=== PATIENT | female | born 1980 | race Caucasian/White ===

== ENCOUNTER 2018-02-27 12:36 | Inpatient (IN) | payer OTHER ==
[2018-02-27] MEDS: Lactated Ringer's 1,000 ML IV SCH (12:45)
[2018-02-27] MEDS ORDERED: Lactated Ringer's 1,000 ML IV ONE ×2 (13:08)
[2018-02-27] MEDS: cefOXitin IV 2 gm in Dextrose 2 GM/50 ML BAG IVPB SCH ×2 (13:13→21:37)
[2018-02-27 13:20] LABS: BASO % 0.5 % (0.0-2.0); EOS # 0.1 K/uL (0.0-0.7); EOS % 0.9 % (0.0-4.0); HEMOGLOBIN 13.1 g/dL (11.0-16.0); LYMPH # 2.6 K/uL (1.0-4.3); LYMPH % 28.7 % (20.0-40.0); MEAN CELL VOLUME 94.2 fL (81.0-99.0); MEAN CORPUSCULAR HEMOGLOBIN 31.2 pg (27.0-31.0); MEAN CORPUSCULAR HGB CONC 33.1 g/dL (33.0-37.0); MONO # 0.7 K/uL (0.0-0.8); MONO % 7.9 % (0.0-10.0); NEUT # 5.6 K/uL (1.8-7.0); NRBC % 0.1 % (0.0-2.0); RBC 4.2 Mil/uL (3.80-5.20); RED CELL DISTRIBUTION WIDTH 20.9 % (11.5-14.5)
[2018-02-27 13:31] LABS: SQUAMOUS EPITHIAL 40 /hpf (0-5); URINE BACTERIA MOD (<OCC); URINE BILIRUBIN NEGATIVE (NEGATIVE); URINE BLOOD 3+ (NEGATIVE); URINE CLARITY Hazy (Clear); URINE COLOR Yellow (YELLOW); URINE GLUCOSE (UA) NORMAL (Normal); URINE LEUKOCYTE ESTERASE NEG Leu/uL (Negative); URINE PROTEIN NEGATIVE (NEGATIVE); URINE UROBILINOGEN NORMAL mg/dL (0.2-1.0)
--- NOTE | 2018-02-27 13:41 | OBHP ---
Datetime: 02/27/2018 13:19 IP Adm Impression: Term, intrauterine ; Active labor; Intact Membranes IP Chief Complaint Other: A1 GDM, previous C/S IP Admit Plan: Admit to unit; Initiate Section protocol Admit Comment, IP Provider: This is a private patient of Dr. Wilver Szymanski 37 y.o. , LMP 06/04/17, ENA 03/09/18, EGA 38w 3d, previous C/S, c/o onset of Ctx 1100 hours , initial pain scale 3/10; by 1130 hours, pain scale 9/10 and occurring every 3 minutes. (+) AFM; (+ ) vaginal spotting 1100 hours. Denies LOF. care: Dr. Szymanski; AMA, A1GDM; last F.S. fasting 02/26/18, none since. P Ob: 2008, C/S, female, 7lb 4oz, arrest of descent; [place]; no comlicaitons P PRODUCTION LEAD: 13 x monthly x 3-4 PSH: C/S PMH: 2013,anxiety, depression; was on meds until beginning of index NKDA Meds: PNV; last took 1 week ago Soc Hx; denies tobacco, illicit drug or EtOH use. x 9 years. Homemaker Mother alive - no med issues. Father alive - DM P.E.: as above. WD in pain with Ctx. Awake, alert, oriented to time, person and place. Cooperative . Husbnad present Assessment: 37 y.o. P1, 38w 3d, previous C/S in active labor. Category 1 tracing. GBS unknown. Pat ient counseled re: TOLAC/ by Dr. Szymanski - patient declines. Patient last ate 2320 hours, 02/26/18 . F.S. 82 mg/dL at 1258 hours. Clincally stable. Plan: 1) Admit 2) NPO 3) Admission labs 4) [place] 5) Abdominal prep and shave 6) Continous EFM 7) Notify anesthesia 8) Notify peds 9) Mefoxin, head tennis professional to O.R. 10) patient head tennis professional to O.R. - as per, D/W, Dr. Szymanski Pelvic Type - PN: Adequate Extremities - PN: Normal Abdomen - PN: Normal Back - PN: Normal Breast - PN: Normal Lungs - PN: Normal Heart - PN: Normal Thyroid - PN: Not Done Neurologic - PN: Normal HEENT - PN: Normal General - PN: Normal Presentation-Admit: Vertex FHR - Baseline A Provider: 135 Membranes, Provider: Intact Contraction Comments Provider: 3-4 Comments, ACOG Physical Exam: Abdomen: Gravid. Firm with contractions. Extremties: red, warm, tender inner thigh from groin to knee All other systems reviewed and are negative Gestation - Est Wks by US: 38w 3d IP Hx Assessment: The History has been Reviewed and is Current EGA AdmitDate IP: 38.3 Vital Signs Provider: Reviewed; Within Normal Limits IP Indication for Induction: Not Applicable IP Chief Complaint: Uterine contractions NICHD Variability Prov Fetus A: Moderate 6-25bpm NICHD Accel Fetus A IP Provider: [id number] FHR Category Provider Fetus A: Category I NICHD Decel Fetus A IP Provider: None Dilatation, Provider: 6-7 Effacement, Provider: 70 Station, Provider: -2 Genitourinary Exam: Normal DTRs - PN: Not Done
[2018-02-27] MEDS ORDERED: Morphine 1 mg/ml preservative-free Inj(Duramorph) ONE (13:42)
[2018-02-27] MEDS ORDERED: Sodium Citrate/Citric Acid 15 ml Sol PO ONE (13:45)
[2018-02-27 13:50] LABS: BARBITURATES, UR NEGATIVE (NEGATIVE); BENZODIAZEPINES, UR NEGATIVE (NEGATIVE); OPIATES, UR NEGATIVE (NEGATIVE); PHENCYCLIDINE, UR NEGATIVE (NEGATIVE)
[2018-02-27] MEDS ORDERED: Oxytocin 10 Units/ml Inj IV STA (14:23)
[2018-02-27] MEDS ORDERED: Naloxone 0.4 mg/ml Inj (Adult) IVP PRN (15:02)
[2018-02-27] MEDS: Simethicone 80 mg Chewtab PO SCH ×2 (18:00→21:43)
--- NOTE | 2018-02-27 19:07 | OBHP ---
Datetime: 02/27/2018 13:19 Admit Comment, IP Provider: This is a private patient of Dr. Wilver Szymanski 37 y.o. , LMP 06/04/17, ENA 03/09/18, EGA 38w 3d, previous C/S, c/o onset of Ctx 1100 hours , initial pain scale 3/10; by 1130 hours, pain scale 9/10 and occurring every 3 minutes. (+) AFM; (+ ) vaginal spotting 1100 hours. Denies LOF. care: Dr. Szymanski; AMA, A1GDM; last F.S. fasting 02/26/18, none since. 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 x 9 years. Homemaker Mother alive - no med issues. Father alive - DM P.E.: as above. WD in pain with Ctx. Awake, alert, oriented to time, person and place. Cooperative . Husbnad present Assessment: 37 y.o. P1, 38w 3d, previous C/S in active labor. Category 1 tracing. GBS unknown. Pat ient counseled re: TOLAC/ by Dr. Szymanski - patient declines. Patient last ate 2320 hours, 02/26/18 . F.S. 82 mg/dL at 1258 hours. Probable right thigh cellulitis. Clinically stable. Plan: 1) Admit 2) NPO 3) Admission labs 4) De Anda 5) Abdominal prep and shave 6) Continous EFM 7) Notify anesthesia 8) Notify peds 9) Mefoxin, automation control integrator to O.R. 10) patient automation control integrator to O.R. - as per, D/W, Dr. Szymanski Addendum: Right thigh findings D/W Dr. Ortega: switch to zosyn. EGA AdmitDate IP: 38.3
[2018-02-27] MEDS ORDERED: Piperacillin/Tazobact 3.375 GM in Sodium Chloride 100 ML IVPB SCH (21:30)
[2018-02-28] MEDS: Lactated Ringer's 1,000 ML IV SCH ×3 (01:31→13:50)
[2018-02-28] MEDS: Oxycodone/Acetaminophen 5/325 mg Tab PO PRN ×4 (03:38→21:58)
[2018-02-28] MEDS: Simethicone 80 mg Chewtab PO SCH ×5 (03:39→21:55)
[2018-02-28] MEDS: Piperacillin/Tazobact 3.375 GM in Sodium Chloride 100 ML IVPB SCH ×3 (05:01→21:56)
[2018-02-28] MEDS: cefOXitin IV 2 gm in Dextrose 2 GM/50 ML BAG IVPB SCH (06:00)
[2018-02-28 08:29] LABS: HEMOGLOBIN 11.2 g/dL (11.0-16.0); MEAN CELL VOLUME 94.6 fL (81.0-99.0); MEAN CORPUSCULAR HEMOGLOBIN 31.3 pg (27.0-31.0); MEAN CORPUSCULAR HGB CONC 33.1 g/dL (33.0-37.0); MEAN PLATELET VOLUME 9.5 fL (7.2-11.7); RBC 3.6 Mil/uL (3.80-5.20); RED CELL DISTRIBUTION WIDTH 20.8 % (11.5-14.5); WHITE BLOOD COUNT 12.2 K/uL (4.8-10.8)
[2018-02-28] MEDS: Prenatal Multivit/Folic Acid/Iron Tab PO SCH (11:23)
--- NOTE | 2018-02-28 13:16 | OBPPN ---
Datetime: 02/28/2018 08:08 PP Pain Prov: Within normal limits PP Nausea Prov: Denies PP Flatus Prov: No PP BM Prov: No PP Breasts Prov: Not Done PP Heart Prov: Normal PP Lungs Prov: Normal PP Abdomen/Uterus Prov: Normal PP Lochia Prov: Normal PP Vulva/Perineum Prov: Not Done PP CVA Tenderness Prov: Normal PP Extremities Prov: Normal PP C/S Incision Prov: Normal PP Progress Prov: Abnormal PP Impression Prov: Normal progression; difficulties; Increased temperature PP Plan Prov: Continue present management; Antibiotic therapy; consult PP Progress Note Prov: S: Patient seen and examined. Patient was resting in chair. States that she e xperienced some fever and chills overnight in addition to nausea, however is not experiencing these s ymptoms currently. Catheter was removed this morning. States her pain is well managed at this time. R eports minor vaginal bleeding and having changed pads twice. Has not had flatus or bowel movement. St ates her rash on her right thigh is also improved since yesterday. Has some difficulty and so infant has been bottlefeeding. Denies chest pain, shortness of breath. Admits to insomnia. A: 37 year old female presents POD#1 s/p Cesearean section. P: Patient is postoperative day #1. Patient did have fever overnight with Tmax of 100.4. Continue Zosyn 3.375 grams IV q8H. Clear liquid diet and advance diet as tolerated. Ambien 5 mg qHS PRN for in somnia. Continue current pain management regimen. Encourage ambulation. Deandra Pa PGY-1, OB-DRILLER MACHINE Progress Note for Dr. Szymanski Vital Signs Provider PP: Reviewed Vital Signs Provider Details PP: Tmax overnight 100.4
--- NOTE | 2018-02-28 20:11 | OP ---
PROCEDURE DATE: 02/27/2018 PREOPERATIVE DIAGNOSIS: A 37-year-old 2, para 1 at 38 plus weeks gestational diabetic in active in labor. POSTOPERATIVE DIAGNOSIS: A 37-year-old 2, para 1 at 38 plus weeks gestational diabetic in active in labor. SURGEON: Wilver Szymanski MD PHLEBOTOMY TECHNICIAN: Stalin Joyner MD ANESTHESIA: Spinal. ANESTHESIOLOGIST: Dr. Greyson Mitchell. PROCEDURE PERFORMED: Repeat section. ESTIMATED BLOOD LOSS: 800 mL. COMPLICATIONS: None. DESCRIPTION OF PROCEDURE: After informed consent was obtained, the patient was brought to the operating room, placed on the table where spinal anesthesia was given. Once the anesthesia was given, the patient was prepped and draped in the normal sterile fashion. At the site of the previous skin incision, an incision was made with a knife; the subcutaneous cut with a Bovie and the fascia was excised on both the sides using curved Montgomery scissors. with a knife. After that, we went into it was stretched out. Bladder flap was placed. Bladder flap was created. The uterine incision was made with a knife. It was extended using Bovie and curved Montgomery scissors. Baby was delivered in FERNANDO position. Cord was clamped and cut. Baby was handed to the awaiting paint line operator. Cord gas was taken. Placenta delivered manually. Uterus could not be exteriorized because of the adhesion. Uterus was cleaned of clots and all debris. The uterine incision was closed with #1 Vicryl in running interlocking fashion. Second layer was closed with the same stitch. After that, the cul-de-sac was cleared of all the clots and debris. Uterine incision was looked and found to be hemostatic. Surgicel was placed. Muscle was closed using 2-0 Vicryl in running interlocking fashion. The fascia was closed using #1 Vicryl in running interlocking fashion. Subcutaneous tissue was closed with 0 Vicryl in interrupted fashion. Skin was closed using 3-0 Monocryl straight needle. The patient tolerated the procedure well. Lap, sponge, and instrument count were correct x2. Wilver Szymanski MD [facility] # [id number]
[2018-03-01] MEDS: Oxycodone/Acetaminophen 5/325 mg Tab PO PRN ×5 (02:18→21:04)
[2018-03-01] MEDS: Piperacillin/Tazobact 3.375 GM in Sodium Chloride 100 ML IVPB SCH ×3 (05:52→21:05)
--- NOTE | 2018-03-01 06:54 | OBDS ---
DELIVERY PERSONNEL Delivery Doctor: Wilver Szymanski MD [employer] Teacher: Stephen Mccord RN Anesthesiologist: Madhuri Pollard MD MATERNAL INFORMATION Delivery Anesthesia: Spinal Medications in Delivery: pitocin 20/cytotec 1000/pitocin 20 add Estimated Blood Loss (ml): 800 Placenta Cultured: Yes Maternal Complications: None Other Maternal Complications: AMA , PREVIOUS C/S X 1, GBS UNKNOWN GDMA1 DIET CONTROLLED Provider Comments: baby deliverd in mamadou. end clean 9/9 no com LABOR SUMMARY EDC: 03/10/2018 00:00 No. Babies in Womb: 1 Attempted: No Labor Anesthesia: None LABOR INFORMATION Reason for Induction: Not Applicable Onset of Labor: 02/27/2018 11:00 Oxytocin: N/A Group B Beta Strep: Done, Result Unknown Antibiotics # of Doses: 1 Antibiotics Time of Last Dose: 1313 Steroids Given: None Reason Steroids Not Administered: Not Applicable MEMBRANES Membranes Rupture Method: Spontaneous Rupture of Membranes: 02/27/2018 13:39 Length of Rupture (hrs): 0.60 Amniotic Fluid Color: Clear Amniotic Fluid Amount: Small Amniotic Fluid Odor: Normal STAGES OF LABOR Stage 3 hrs: 0 Stage 3 min: 1 Total Time in Labor hrs: 3 Total Time in Labor min: 16 CSECTION DELIVERY Primary Indication: Repeat Elective Other Primary Indication: IN ACTIVE LABOR CSection Urgency: Elective CSection Incidence: Repeat Labor: Labor Elective: N/A CSection Incision: Lower Uterine Transverse BABY A INFORMATION Delivery Date/Time: 02/27/2018 14:15 Method of Delivery: Born in Route : No : N/A Forceps: N/A Vacuum Extraction: N/A SHOULDER DYSTOCIA BABY A Delivery Date/Time: 02/27/2018 14:15 PRESENTATION/POSITION BABY A Presentation: Cephalic Cephalic Presentation: Vertex Vertex Position: Left Occipital Anterior Breech Presentation: N/A PLACENTA INFORMATION BABY A Placenta Delivery Time : 02/27/2018 14:16 Placenta Method of Delivery: Manual Removal Placenta Status: Delivered SCORES BABY A Heart Rate 1 min: >100 bpm Resp Effort 1 min: Good Cry Reflex Irritability 1 min: Cough or Sneeze or Pulls Away Muscle Tone 1 min: Active Motion Color 1 min: Body [place], Extremities Blue Resuscitation Effort 1 min: Tactile Stimulation SCORE 1 MIN: 9 Heart Rate 5 min: >100 bpm Resp Effort 5 min: Good Cry Reflex Irritability 5 min: Cough or Sneeze or Pulls Away Muscle Tone 5 min: Active Motion Color 5 min: Body [place], Extremities Blue SCORE 5 MIN: 9 INFORMATION BABY A Gestational Age at Delivery: 38.3 Gestational Status: Term Infant Outcome : Liveborn Infant Condition : Stable Sex: Female IDENTIFICATION/MEDS BABY A ID Band Number: [id number] ID Band Location: Left Leg; Left Arm Sensor Applied: Yes Sensor Number: [id number] Sensor Location : Cord Clamp Vitamin K Given : Aquamephyton 0.5 mg IM; Aquamephyton 1 mg IM; Left Thigh Erythromycin Given: Given Both Eyes WEIGHT/LENGTH BABY A Infant Birthweight (gms): 3090 Weight (lb): 6 Weight (oz): 13 Infant Length Inches: 18.50 Length cms: 47.0 CORD INFORMATION BABY A No. Cord Vessels: 3 Nuchal Cord : N/A Cord Blood Taken: Yes Suction: Mouth; Nose ASSESSMENT BABY A Complications: None Physical Findings at Delivery: Within Normal Limits Respirations: Appears Normal Business Trainer/ALS Called : No Care By: rika Transferred To: Remains with Mother
--- NOTE | 2018-03-01 06:54 | OBPPN ---
Datetime: 03/01/2018 06:45 PP Pain Prov: Within normal limits PP Nausea Prov: Denies PP Flatus Prov: Yes PP Abdomen/Uterus Prov: Normal PP Lochia Prov: Normal PP Extremities Prov: Abnormal PP Comments Phys Exam Prov: milf edema vulva cellultisi incision clean and dry PP Impression Prov: Normal progression PP Impression Other Prov: cellulitids PP Progress Note Prov: pt was seeen at bed side, pain under control,no n/v, toletating deit, no n/v, flatus +. legs swolen and cellulitis pod#2v s/p c/s cellulitis cont zosyn b/l dolpplerscont painn ma encourage am cont post op care Vital Signs Provider PP: Reviewed; Within Normal Limits
[2018-03-01] MEDS: Prenatal Multivit/Folic Acid/Iron Tab PO SCH (10:17)
[2018-03-01] MEDS: Simethicone 80 mg Chewtab PO SCH ×4 (10:18→21:03)
[2018-03-01 11:56] LABS: BASO % 0.6 % (0.0-2.0); EOS # 0.2 K/uL (0.0-0.7); EOS % 2.7 % (0.0-4.0); HEMOGLOBIN 10.1 g/dL (11.0-16.0); LYMPH # 1.6 K/uL (1.0-4.3); LYMPH % 20.7 % (20.0-40.0); MEAN CELL VOLUME 94.3 fL (81.0-99.0); MEAN CORPUSCULAR HEMOGLOBIN 32.3 pg (27.0-31.0); MEAN CORPUSCULAR HGB CONC 34.2 g/dL (33.0-37.0); MEAN PLATELET VOLUME 9.2 fL (7.2-11.7); MONO # 0.8 K/uL (0.0-0.8); MONO % 10.1 % (0.0-10.0); NEUT # 5.2 K/uL (1.8-7.0); NEUT % 65.9 % (50.0-75.0); NRBC % 0.1 % (0.0-2.0); RBC 3.14 Mil/uL (3.80-5.20); RED CELL DISTRIBUTION WIDTH 20.7 % (11.5-14.5); WHITE BLOOD COUNT 7.9 K/uL (4.8-10.8)
--- NOTE | 2018-03-01 13:15 | VASCLAB ---
Date of service: 03/01/2018 PROCEDURE: Lower Extremity Venous Duplex Exam. HISTORY: b/l leg sweeling PRIORS: None. TECHNIQUE: Bilateral common femoral, femoral, popliteal and posterior tibial, peroneal and great saphenous veins were evaluated. Flow was assessed with color Doppler, compressibility, assessment of phasic flow and augmentation response. Report prepared by Morgan Little, MELVIN, RVT FINDINGS: RIGHT: 1. Common Femoral Vein: 1.1. Compressibility - Fully compressible: Thrombus - None : Flow - Phasic: Augmentation -Normal: Reflux - None. 2. Femoral Vein: 2.1. Compressibility - Fully compressible: Thrombus - None : Flow - Phasic: Augmentation -Normal: Reflux - None. 3. Popliteal Vein: 3.1. Compressibility - Fully compressible: Thrombus - None : Flow - Phasic: Augmentation -Normal: Reflux - None. 4. Posterior Tibial Vein: 4.1. Compressibility - Fully compressible: Thrombus - None: Flow - Phasic: Augmentation -Normal: Reflux - None. 5. Peroneal Vein: 5.1. Compressibility - Fully compressible: Thrombus - None: Flow - Phasic: Augmentation -Normal: Reflux - None. 6. Great Saphenous Vein: 6.1. Compressibility - Fully compressible: Thrombus - None: Flow - Phasic: Augmentation - Normal: Reflux - None. LEFT: 1. Common Femoral Vein: 1.1. Compressibility - Fully compressible: Thrombus - None: Flow - Phasic: Augmentation -Normal: Reflux - None. 2. Femoral Vein: 2.1. Compressibility - Fully compressible: Thrombus - None: Flow - Phasic: Augmentation -Normal: Reflux - None. 3. Popliteal Vein: 3.1. Compressibility - Fully compressible: Thrombus - None : Flow - Phasic: Augmentation -Normal: Reflux - None. 4. Posterior Tibial Vein: 4.1. Compressibility - Fully compressible: Thrombus - None: Flow - Phasic: Augmentation -Normal: Reflux - None. 5. Peroneal Vein: 5.1. Compressibility - Fully compressible: Thrombus - None: Flow - Phasic: Augmentation -Normal: Reflux - None. 6. Great Saphenous Vein: 6.1. Compressibility - Fully compressible: Thrombus - None: Flow - Phasic: Augmentation - Normal: Reflux - None. OTHER FINDINGS: Right: None significant. Left: None significant. IMPRESSION: Right: No evidence of deep or superficial vein thrombosis of the right lower extremity. Normal valve function noted of the right side. Left: No evidence of deep or superficial vein thrombosis of the left lower extremity. Normal valve function noted of the left side.
[2018-03-01 16:24] VITALS: RESP 18; TEMP 97.5
[2018-03-02] MEDS: Oxycodone/Acetaminophen 5/325 mg Tab PO PRN ×3 (01:06→13:46)
[2018-03-02] MEDS: Piperacillin/Tazobact 3.375 GM in Sodium Chloride 100 ML IVPB SCH (05:35)
[2018-03-02] MEDS: Simethicone 80 mg Chewtab PO SCH (10:30)
[2018-03-02] MEDS: Prenatal Multivit/Folic Acid/Iron Tab PO SCH (10:32)
[2018-03-02 11:18] VITALS: BP 92/52; PULSE 72; O2SAT 97
== END 2018-03-02 15:35 | disposition home or self-care (01) | DRG 765 ==
LOC: C.EROB 12:36 → C.4D 13:05 → C.4M 17:20
PROVIDERS: ADMIT Obstetrics & Gynecology; ATTEND Obstetrics & Gynecology
PROC: 10D00Z1 Extraction of Products of Conception, Low, Open Approach (ICD-10-PCS; principal; 2018-02-27)
DX: O34.211 Maternal care for low transverse scar from previous cesarean delivery (principal); L03.115 Cellulitis of right lower limb; Z3A.38 38 weeks gestation of pregnancy; O24.420 Gestational diabetes mellitus in childbirth, diet controlled; O99.72 Diseases of the skin and subcutaneous tissue complicating childbirth; G47.00 Insomnia, unspecified; Z37.0 Single live birth

== ENCOUNTER 2018-03-05 11:02 | Inpatient (IN) | payer OTHER ==
[2018-03-05 11:55] LABS: BASO # 0.1 K/uL (0.0-0.2); BASO % 0.6 % (0.0-2.0); EOS # 0.2 K/uL (0.0-0.7); EOS % 1.8 % (0.0-4.0); HEMOGLOBIN 10.9 g/dL (11.0-16.0); LYMPH # 1.6 K/uL (1.0-4.3); LYMPH % 16.6 % (20.0-40.0); MEAN CELL VOLUME 93.9 fL (81.0-99.0); MEAN CORPUSCULAR HEMOGLOBIN 31.6 pg (27.0-31.0); MEAN CORPUSCULAR HGB CONC 33.6 g/dL (33.0-37.0); MEAN PLATELET VOLUME 8.4 fL (7.2-11.7); MONO # 0.7 K/uL (0.0-0.8); MONO % 7.6 % (0.0-10.0); NEUT # 6.9 K/uL (1.8-7.0); NEUT % 73.4 % (50.0-75.0); RBC 3.44 Mil/uL (3.80-5.20); RED CELL DISTRIBUTION WIDTH 18.9 % (11.5-14.5); WHITE BLOOD COUNT 9.4 K/uL (4.8-10.8)
--- NOTE | 2018-03-05 12:05 | C.PDOC ---
History Of Present Illness 37 years old female presents to ED for complaints of shortness of breath associated with non-productive cough that began last night. Patient states she feels like "something is sitting on her chest" and feels mucus in her throat. Patient had a on 02/27 and was discharged on the from the hospital and complaint of leg swelling since then. Patient describes leg swelling as worse in right than left. Patient also states an ultrasound was done to rule out a blood clot and it was negative. Denies fever or chills. Time Seen by Provider: 03/05/18 11:42 Chief Complaint (Nursing): Shortness Of Breath History Per: Patient History/Exam Limitations: no limitations Onset/Duration Of Symptoms: Hrs Current Symptoms Are (Timing): Still Present Current Respiratory Medications: See Home Med List Associated Symptoms: denies: Fever, Chills Recent travel outside of the [place]: No Past Medical History Reviewed: Historical Data, Nursing Documentation, Vital Signs Vital Signs: Last Vital Signs Temp 98.4 F 03/05/18 11:21 Pulse 66 03/05/18 12:52 Resp 61 H 03/05/18 16:02 BP 136/73 03/05/18 16:02 Pulse Ox 97 03/05/18 16:32 - Medical History PMH: Diabetes Surgical History: - [facility] Procedures EXTRACTION OF POC, LOW CERVICAL, OPEN APPROACH (02/27/18) Family History: States: No Known Family Hx - Social History Hx Alcohol Use: No Hx Substance Use: No - Immunization History Hx Tetanus Toxoid Vaccination: No Hx Influenza Vaccination: No Hx Pneumococcal Vaccination: No Review Of Systems Constitutional: Negative for: Fever, Chills Respiratory: Positive for: Cough (Non-productive ), Shortness of Breath Gastrointestinal: Negative for: Nausea, Vomiting, Diarrhea Skin: Negative for: Rash Neurological: Negative for: Weakness, Numbness Physical Exam - Physical Exam Appears: Non-toxic, No Acute Distress Skin: Warm, Dry, No Rash, Other (melasma to face) Head: Atraumatic, Normacephalic Eye(s): bilateral: Normal Inspection Oral Mucosa: Moist Neck: Normal ROM, Supple Chest: Symmetrical, No Tenderness Cardiovascular: Rhythm Regular, No Murmur Respiratory: No Decreased Breath Sounds, No Rales, Rhonchi (Scattered ), No Wheezing Gastrointestinal/Abdominal: Soft, Tenderness (Mild to wound, no erythema or discharge ), No Distention, No Guarding Extremity: Pedal Edema (Pitting bilateral), Calf Tenderness (Mild right claf ) Extremity: Bilateral: Atraumatic, Normal Color And Temperature, Normal ROM Neurological/Psych: Oriented x3, Normal Speech Gait: Steady ED Course And Treatment - Laboratory Results Result Diagrams: 03/05/18 11:48 03/05/18 11:48 Lab Interpretation: No Acute Changes ECG: Interpreted By Me, Viewed By Me ECG Rhythm: Sinus Rhythm ECG Interpretation: No Acute Changes Rate From EC (low voltage) O2 Sat by Pulse Oximetry: 97 (RA) Pulse Ox Interpretation: Normal - Other Rad CXR X-Ray: Viewed By Me, Read By Radiologist Interpretation: HISTORY: SOB. COMPARISON: None available. TECHNIQUE: Chest , one view. FINDINGS: Examination limited by habitus. LUNGS: Patchy bilateral lower lobe consolidations may reflect infection or edema. No large pleural effusion or definite pneumothorax. Please note that chest x-ray has limited sensitivity for the detection of pulmonary masses. CARDIOVASCULAR: Cardiomegaly. OSSEOUS STRUCTURES: No acute osseous abnormality identified. VISUALIZED UPPER ABDOMEN: Unremarkable. OTHER FINDINGS: None. IMPRESSION: Cardiomegaly. Patchy bilateral lower lobe consolidations may reflect infection or edema. - CT Scan/US Chest CT Other Rad Studies (CT/US): Read By Radiologist, Radiology Report Reviewed CT/US Interpretation: Date of service: 03/05/18. CTA chest PE protocol. Indication: SOB, leg edema p.o csection. Technique: Contiguous axial images were obtained through the chest with intravenous contrast enhancement. Sagittal and coronal reconstructions were generated and reviewed. This CT exam was performed using 1 or more of the following dose reduction techniques: Automated exposure control, adjustment of the MAA and/or kV according to patient size, and /or use of iterative reconstruction technique. IV Contrast: 100 mL Visipaque IV. . Radiation dose (DLP): 393.52 MGy-cm. Comparison: Chest x-ray performed 03/05/18. Findings: Visualized portions of the inferior thyroid gland appear unremarkable. The mediastinal and hilar vascular structures appear within normal limits. Cardiomegaly. Small pericardial fluid. No large central or segmental pulmonary embolus evident. Axillary adenopathy measuring up to 13 mm in short axis on the left. Hazy, ground-glass airspace opacities in the central peribronchovascular distribution appears consistent with pulmonary edema. Infection is not excluded. Small bilateral pleural effusions and associated consolidations. No pneumothorax. Limited visualized portions of the upper abdomen appear grossly unremarkable. No acute osseous abnormality is detected. Impression: Cardiomegaly. Small pericardial fluid. No large central or segmental pulmonary embolus evident. Axillary adenopathy measuring up to 13 mm in short axis on the left. Findings which appear consistent with pulmonary edema ; infection is not excluded. Small bilateral pleural effusions and associated consolidations. Medical Decision Making Medical Decision Making: Impression: SOB since last night and h.o POD 4 Plan: * CXR * EKG * Labs * D-Dimer * Vascular Duplex scan Progress: CXR shows patchy bilateral lower lobe consolidations may reflect infection or edema. Doppler study of bilateral legs negative for DVT Labs reviewed with no acute changes since discharge CTA chest shows no PE, Cardiomegaly. Small pericardial fluid. No large central or segmental pulmonary embolus evident. Findings which appear consistent with pulmonary edema; infection is not excluded. Small bilateral pleural effusions and associated consolidations. Case discussed with ED attending who advise to consult OB and if not admit to medicine. [address] Szymanski [address] Szymanski who advised contacting medicine for further evaluation regarding condition, as this is not OB related; recommends Dr Aldana [address] Aldana who states he will see patient in ED 1619 DR Aldana accepts patient to ICU for acute CHF and will place additional orders and take medical management from this point forward. Disposition - Disposition Disposition: HOSPITALIZED Disposition Time: 16:20 Condition: FAIR - Clinical Impression Clinical Impression: CHF (congestive heart failure), Pleural effusion, state, H/O section - PA / INCOMING INSPECTOR / Resident Statement MD/DO has reviewed & agrees with the documentation as recorded. - Scribe Statement The provider has reviewed the documentation as recorded by the Francisco J Barkley All medical record entries made by the Kekeibjakub were at my direction and personally dictated by me. I have reviewed the chart and agree that the record accurately reflects my personal performance of the history, physical exam, medical decision making, and the department course for this patient. I have also personally directed, reviewed, and agree with the discharge instructions and disposition. Decision To Admit - Pt Status Changed To: Hospital Disposition Of: Inpatient - Admit Certification Admit to Inpatient:: After my assessment, the patient will require hospitalization for at least two midnights. This is because of the severity of symptoms shown, intensity of services needed, and/or the medical risk in this patient being treated as an outpatient. - InPatient: Physician Admission Certification: I certify that this patient requires 2 or more midnights of care for the following reason:: Patient with acute SOB and history of prior , suspected PE. Labs studies showed no acute changes. CT showed cardiomegaly; Small pericardial fluid. No large central or segmental pulmonary embolus evident. Findings which appear consistent with pulmonary edema ; infection is not excluded. Small bilateral pleural effusions and associated consolidations. Per DR Aldana patient to be admitted to ICU - . Bed Request Type: ICU Admitting Physician: Mitul Aldana Patient Diagnosis: CHF (congestive heart failure), Pleural effusion
[2018-03-05 12:15] LABS: BLOOD UREA NITROGEN 7 mg/dL (7-17); GFR NON-AFRICAN AMERICAN > 60
[2018-03-05 12:16] LABS: ALBUMIN 2.9 g/dL (3.5-5.0); ALT/SGPT 42 U/L (9-52); AST/SGOT 22 U/L (14-36); CALCIUM 8.7 mg/dl (8.6-10.4)
[2018-03-05] MEDS ORDERED: Iodixanol 320 MG/ML 100 ML BOTTLE IV ONE (12:45)
[2018-03-05] MEDS ORDERED: Morphine 4 MG/ML VIAL ONE (12:47)
--- NOTE | 2018-03-05 14:34 | CT ---
Date of service: 03/05/18 CTA chest PE protocol Indication: SOB, leg edema p.o csection Technique: Contiguous axial images were obtained through the chest with intravenous contrast enhancement. Sagittal and coronal reconstructions were generated and reviewed. This CT exam was performed using 1 or more of the following dose reduction techniques: Automated exposure control, adjustment of the MAA and/or kV according to patient size, and/or use of iterative reconstruction technique. IV Contrast: 100 mL Visipaque IV Radiation dose (DLP): 393.52 MGy-cm. Comparison: Chest x-ray performed 03/05/18 Findings: Visualized portions of the inferior thyroid gland appear unremarkable. The mediastinal and hilar vascular structures appear within normal limits. Cardiomegaly. Small pericardial fluid. No large central or segmental pulmonary embolus evident. Axillary adenopathy measuring up to 13 mm in short axis on the left. Hazy, ground-glass airspace opacities in the central peribronchovascular distribution appears consistent with pulmonary edema. Infection is not excluded. Small bilateral pleural effusions and associated consolidations. No pneumothorax. Limited visualized portions of the upper abdomen appear grossly unremarkable. No acute osseous abnormality is detected. Impression: Cardiomegaly. Small pericardial fluid. No large central or segmental pulmonary embolus evident. Axillary adenopathy measuring up to 13 mm in short axis on the left. Findings which appear consistent with pulmonary edema ; infection is not excluded. Small bilateral pleural effusions and associated consolidations.
[2018-03-05] MEDS: Piperacill/Tazo 3.375gm in Dex 3.375 GM/50 ML BAG IVPB SCH ×2 (16:40→23:50)
[2018-03-05] MEDS: Enoxaparin 40 mg Syringe SC SCH (16:40)
[2018-03-05] MEDS ORDERED: Enoxaparin 40 mg Syringe ONE (16:42)
[2018-03-05] MEDS ORDERED: Piperacillin/Tazobact 3.375 gm 100 ML IVPB ONE (16:43)
--- NOTE | 2018-03-05 16:49 | CP.PCM.CON ---
History of Present Illness - History of Present Illness History of Present Illness: ICU Consult note HPI: Patient is a 37 year old female who is s/p C section on 02/27/18 who presents with shortness of breath and chest congestion that started this morning around 4-5 AM. Patient states she felt heaviness in her chest along with chest congestion and wheezing. She states she felt she couldn't cough it up because she was afraid her sutures from her C section would rip open. She denies recent fever, chills, abdominal pain, nausea, vomiting, headache, dizziness. She states she has had swelling of her lower extremities that was worse on her right lower leg compared to her left lower leg. She states she has been on Amoxicillin for an infection on her right thigh. PMH: anxiety, gestational diabetes PSH: C section x2 Home meds: Lexapro 20mg daily, Fe pills, vitamins, Percocet, Motrin, Augmentin 875mg 1 tab PO BID Allergies: NKDA Review of Systems - Constitutional Constitutional: absent: Chills, Fever - Cardiovascular Cardiovascular: Chest Pain, Dyspnea - Respiratory Respiratory: Cough - Gastrointestinal Gastrointestinal: absent: Abdominal Pain, Diarrhea, Nausea, Vomiting - Genitourinary Genitourinary: absent: Difficulty Urinating, Dysuria - Psychiatric Psychiatric: Depression. absent: Anxiety Past Patient History - Infectious Disease Hx of Infectious Diseases: None - Past Social History Smoking Status: Never Smoked - CARDIAC Hx Hypertension: No - PSYCHIATRIC Hx Substance Use: No - SURGICAL HISTORY Hx Surgeries: Yes Hx Section: Yes - ANESTHESIA Hx Anesthesia: Yes Hx Anesthesia Reactions: No Meds Allergies/Adverse Reactions: Allergies Allergy/AdvReac Type Severity Reaction Status Date / Time No Known Allergies Allergy Verified 03/05/18 11:23 - Medications Medications: Current Medications Enoxaparin Sodium (Lovenox) 40 mg SC DAILY [facility] Last Admin: 03/05/18 16:40 Dose: 40 mg Furosemide (Lasix) 20 mg IVP DAILY [facility] Piperacillin Sod/Tazobactam Sod (Zosyn 3.375 Gm Iv Premix) 3.375 gm in 50 mls @ 100 mls/hr IVPB Q6H [facility] PRN Reason: Protocol Last Admin: 03/05/18 16:40 Dose: 100 mls/hr Physical Exam - Constitutional Appears: Other (Patient appears short of breath) - Head Exam Head Exam: ATRAUMATIC, NORMOCEPHALIC - Eye Exam Eye Exam: EOMI Pupil Exam: PERRL - ENT Exam ENT Exam: Mucous Membranes Moist - Respiratory Exam Respiratory Exam: Rales (Fine bibasilar rales noted). absent: Accessory Muscle Use, Rhonchi, Wheezes, Respiratory Distress, Stridor - Cardiovascular Exam Cardiovascular Exam: REGULAR RHYTHM, +S1, +S2. absent: Systolic Murmur - GI/Abdominal Exam GI & Abdominal Exam: Normal Bowel Sounds, Soft. absent: Tenderness Additional comments: Sutures from C section intact with no evidence of infection. - Extremities Exam Extremities exam: Positive for: pedal edema (bilateral pedal edema , no pitting edema), pedal pulses present. Negative for: calf tenderness - Neurological Exam Neurological exam: Alert, CN II-XII Intact, Oriented x3 - Psychiatric Exam Psychiatric exam: Normal Affect, Normal Mood - Skin Skin Exam: Dry, Intact, Warm Results - Vital Signs Recent Vital Signs: Last Vital Signs Temp 98.4 F 03/05/18 11:21 Pulse 66 03/05/18 12:52 Resp 61 H 03/05/18 16:02 BP 136/73 03/05/18 16:02 Pulse Ox 97 03/05/18 16:32 - Labs Result Diagrams: 03/05/18 11:48 03/05/18 11:48 Labs: Laboratory Results - last 24 hr 03/05/18 03/05/18 03/05/18 11:48 11:48 11:48 WBC 9.4 RBC 3.44 L Hgb 10.9 L Hct 32.3 L MCV 93.9 MCH 31.6 H MCHC 33.6 RDW 18.9 H Plt Count 271 D MPV 8.4 Neut % (Auto) 73.4 Lymph % (Auto) 16.6 L [place] % (Auto) 7.6 Eos % (Auto) 1.8 Baso % (Auto) 0.6 Neut # (Auto) 6.9 Lymph # (Auto) 1.6 [place] # (Auto) 0.7 Eos # (Auto) 0.2 Baso # (Auto) 0.1 D-Dimer, Quantitative 3796 H Sodium 144 Potassium 3.8 Chloride 110 H Carbon Dioxide 23 Anion Gap 14 BUN 7 Creatinine 0.6 L Est GFR ( Amer) > 60 Est GFR (Non-Af Amer) > 60 Random Glucose 96 Calcium 8.7 Total Bilirubin 0.4 AST 22 ALT 42 Alkaline Phosphatase 114 Total Protein 5.9 L Albumin 2.9 L Globulin 3.0 Albumin/Globulin Ratio 1.0 Assessment & Plan - Assessment and Plan (Free Text) Assessment: 37 year old female who is s/p C section on 02/27/18 who presented with shortness of breath and chest heaviness that started this morning. Patient admitted to ICU to r/o cardiomyopathy. Plan: Neuro Alert and oriented x3 History of depression Continue to monitor Lexapro 20mg PO daily Cardiovascular Concern for cardiomyopathy Cardio Dr. Craig consulted, help appreciated ECHO ordered. 1L fluid restriction Lasix 20mg IV daily ROMIs f/u Daily weights Pulmonary O2 via [place] CTA chest: cardiomegaly. small pericardial fluid. no large central or segmental PE evident. Axillary adenopathy measuring up to 13mm in short axis in left. Findings which appear to be consistent with pulmonary edema. Infection is not excluded. Small bilateral pleural effusions and associated consolidations. CXR: patchy bilateral lower lobe consolidations may reflect infection or edema. Cardiomegaly. Dopplers: negative for clots GI Heart healthy, low sodium diet 1L fluid restriction Protonix 40mg IV daily Miralax Renal 1L fluid restriction Daily weights Low sodium diet Endo Maintain euglycemia Renal 1L fluid restriction Daily weights I&Os ID Zosyn 3.375g IV Q8 f/u procalcitonin OBGYN s/p C section on 02/27/[address] Szymanski Percocet PRN PPX: Lovenox, Protonix Case discussed with Dr. Aldana
[2018-03-05 17:17] LABS: CK-MB 0.42 ng/mL (0.0-3.38); TROPONIN I 0.04 ng/mL (0.00-0.120)
[2018-03-05] MEDS ORDERED: Oxycodone/Acetaminophen 5/325 mg Tab PO PRN (18:46)
[2018-03-05 20:58] LABS: BASO # 0.1 K/uL (0.0-0.2); EOS # 0.1 K/uL (0.0-0.7); EOS % 0.7 % (0.0-4.0); HEMOGLOBIN 11.9 g/dL (11.0-16.0); LYMPH # 1.4 K/uL (1.0-4.3); LYMPH % 14.9 % (20.0-40.0); MEAN CELL VOLUME 92.8 fL (81.0-99.0); MEAN CORPUSCULAR HEMOGLOBIN 31.3 pg (27.0-31.0); MEAN CORPUSCULAR HGB CONC 33.8 g/dL (33.0-37.0); MEAN PLATELET VOLUME 8.1 fL (7.2-11.7); MONO # 0.5 K/uL (0.0-0.8); MONO % 5.7 % (0.0-10.0); NEUT # 7.3 K/uL (1.8-7.0); NEUT % 77.7 % (50.0-75.0); NRBC % 0.1 % (0.0-2.0); RBC 3.78 Mil/uL (3.80-5.20); RED CELL DISTRIBUTION WIDTH 19.2 % (11.5-14.5); WHITE BLOOD COUNT 9.4 K/uL (4.8-10.8)
[2018-03-05 21:31] LABS: ALBUMIN 2.9 g/dL (3.5-5.0); ALT/SGPT 34 U/L (9-52); AST/SGOT 25 U/L (14-36); BLOOD UREA NITROGEN 7 mg/dL (7-17); CALCIUM 7.9 mg/dl (8.6-10.4); GFR NON-AFRICAN AMERICAN > 60
[2018-03-05 21:39] LABS: CK-MB 0.25 ng/mL (0.0-3.38)
[2018-03-05] MEDS ORDERED: Potassium Chloride 20 mEq/15 ml LIQ UD PO STA (21:49)
--- NOTE | 2018-03-05 23:14 | CP.PCM.CON ---
History of Present Illness - History of Present Illness History of Present Illness: Pt presented with Shortness of Breath, cough and congestion syndrome and was admitted to ICU with Dx of CHF. OBGYN consulted secondary to recent Hx of repeat C/S on 02/[address] Szymanski. Per her records, there were no complications with her admission, delivery and recovery and was D/C home on POD # 3. Pt now denies any pelvic or incisionl pain , minimal bleeding and eating and voiding OK. Review of Systems - Reproductive: Female Reproductive:Female: Other (S/P repeat Section on 02/27 and D/C home on 03/02 in S&S condition) Past Patient History - Infectious Disease Hx of Infectious Diseases: None - Past Medical History & Family History Past Medical History?: No Past Family History: Reviewed and not pertinent - Past Social History Smoking Status: Never Smoked Alcohol: None Drugs: Denies (C/S x 2) - CARDIAC Hx Hypertension: No - ENDOCRINE/METABOLIC Other/Comment: gestational diabetes - MUSCULOSKELETAL/RHEUMATOLOGICAL Hx Falls: No - PSYCHIATRIC Hx Substance Use: No - SURGICAL HISTORY Hx Surgeries: Yes Hx Section: Yes - ANESTHESIA Hx Anesthesia: Yes Hx Anesthesia Reactions: No Meds Allergies/Adverse Reactions: Allergies Allergy/AdvReac Type Severity Reaction Status Date / Time No Known Allergies Allergy Verified 03/05/18 11:23 - Medications Medications: Current Medications Enoxaparin Sodium (Lovenox) 40 mg SC DAILY [facility] Last Admin: 03/05/18 16:40 Dose: 40 mg Escitalopram Oxalate (Lexapro) 20 mg PO DAILY [facility] Furosemide (Lasix) 20 mg IVP DAILY [facility] Piperacillin Sod/Tazobactam Sod (Zosyn 3.375 Gm Iv Premix) 3.375 gm in 50 mls @ 100 mls/hr IVPB Q6H [facility] PRN Reason: Protocol Last Admin: 03/05/18 16:40 Dose: 100 mls/hr Oxycodone/Acetaminophen (Percocet 5/325 Mg Tab) 1 tab PO Q6H PRN PRN Reason: Pain, moderate (4-7) Stop: 03/08/18 18:47 Pantoprazole Sodium (Protonix Inj) 40 mg IVP DAILY [facility] Pneumococcal Polyvalent Vaccine (Pneumovax 23 Vaccine) 0.5 ml SC .ONCE ONE Stop: 03/07/18 10:01 Polyethylene Glycol (Miralax) 17 gm PO DAILY [facility] Physical Exam - Constitutional Appears: No Acute Distress (at this time feeling significatly better) - Exam Additional comments: Pelvic exam not indicated at this time. No OBGYN complaints Incision clean, dry and Intact. Healing well and non-tender Not requiring pain medication at this time for post-op Results - Vital Signs Recent Vital Signs: Last Vital Signs Temp 98.2 F 03/05/18 20:00 Pulse 70 03/05/18 22:00 Resp 35 H 03/05/18 22:00 BP 128/74 03/05/18 22:00 Pulse Ox 91 L 03/05/18 22:00 - Labs Result Diagrams: 03/05/18 20:55 03/05/18 20:55 Labs: Laboratory Results - last 24 hr 03/05/18 03/05/18 03/05/18 11:48 11:48 11:48 WBC 9.4 RBC 3.44 L Hgb 10.9 L Hct 32.3 L MCV 93.9 MCH 31.6 H MCHC 33.6 RDW 18.9 H Plt Count 271 D MPV 8.4 Neut % (Auto) 73.4 Lymph % (Auto) 16.6 L [place] % (Auto) 7.6 Eos % (Auto) 1.8 Baso % (Auto) 0.6 Neut # (Auto) 6.9 Lymph # (Auto) 1.6 [place] # (Auto) 0.7 Eos # (Auto) 0.2 Baso # (Auto) 0.1 D-Dimer, Quantitative 3796 H Sodium 144 Potassium 3.8 Chloride 110 H Carbon Dioxide 23 Anion Gap 14 BUN 7 Creatinine 0.6 L Est GFR ( Amer) > 60 Est GFR (Non-Af Amer) > 60 Random Glucose 96 Calcium 8.7 Phosphorus Magnesium Total Bilirubin 0.4 AST 22 ALT 42 Alkaline Phosphatase 114 Total Creatine Kinase CK-MB (Mass) Troponin I NT-Pro-B Natriuret Pep Total Protein 5.9 L Albumin 2.9 L Globulin 3.0 Albumin/Globulin Ratio 1.0 Procalcitonin 03/05/18 03/05/18 03/05/18 16:16 16:38 20:55 WBC RBC Hgb Hct MCV MCH MCHC RDW Plt Count MPV Neut % (Auto) Lymph % (Auto) [place] % (Auto) Eos % (Auto) Baso % (Auto) Neut # (Auto) Lymph # (Auto) [place] # (Auto) Eos # (Auto) Baso # (Auto) D-Dimer, Quantitative Sodium 145 Potassium 3.4 L Chloride 111 H Carbon Dioxide 24 Anion Gap 13 BUN 7 Creatinine 0.4 L Est GFR ( Amer) > 60 Est GFR (Non-Af Amer) > 60 Random Glucose 104 Calcium 7.9 L Phosphorus 4.3 Magnesium 1.6 Total Bilirubin 0.4 AST 25 ALT 34 Alkaline Phosphatase 98 Total Creatine Kinase 57 53 CK-MB (Mass) 0.42 0.25 Troponin I 0.0400 0.0200 NT-Pro-B Natriuret Pep 2760 H Total Protein 5.9 L Albumin 2.9 L Globulin 2.9 Albumin/Globulin Ratio 1.0 Procalcitonin < 0.05 L 03/05/18 20:55 WBC 9.4 RBC 3.78 L Hgb 11.9 Hct 35.1 MCV 92.8 MCH 31.3 H MCHC 33.8 RDW 19.2 H Plt Count 296 MPV 8.1 Neut % (Auto) 77.7 H Lymph % (Auto) 14.9 L [place] % (Auto) 5.7 Eos % (Auto) 0.7 Baso % (Auto) 1.0 Neut # (Auto) 7.3 H Lymph # (Auto) 1.4 [place] # (Auto) 0.5 Eos # (Auto) 0.1 Baso # (Auto) 0.1 D-Dimer, Quantitative Sodium Potassium Chloride Carbon Dioxide Anion Gap BUN Creatinine Est GFR ( Amer) Est GFR (Non-Af Amer) Random Glucose Calcium Phosphorus Magnesium Total Bilirubin AST ALT Alkaline Phosphatase Total Creatine Kinase CK-MB (Mass) Troponin I NT-Pro-B Natriuret Pep Total Protein Albumin Globulin Albumin/Globulin Ratio Procalcitonin Assessment & Plan - Assessment and Plan (Free Text) Assessment: Post-OP day # 6 after an uneventful repeat C/S, as per Dr. Szymanski Satisfactory recovery. Not requiring pain medication for her Surgery recovery/ Mild bleeding and satisfactory H&H Pedal edema that is usually consider normal in and , period Denies any calf pain or tenderness Stable regarding OBGYN Hx and findings Plan: Continue routine and Postop care May take Motrin for pain if needed prn No new recommendations Discussed with Dr. Szymanski and agrees with findinngs and plan - Date & Time Date: 03/05/18 Time: 11:25
[2018-03-06] MEDS: Piperacill/Tazo 3.375gm in Dex 3.375 GM/50 ML BAG IVPB SCH ×4 (05:40→23:20)
[2018-03-06 06:12] LABS: BASO # 0.1 K/uL (0.0-0.2); BASO % 0.7 % (0.0-2.0); EOS # 0.1 K/uL (0.0-0.7); LYMPH # 1.5 K/uL (1.0-4.3); LYMPH % 18.2 % (20.0-40.0); MEAN CELL VOLUME 92.3 fL (81.0-99.0); MEAN CORPUSCULAR HEMOGLOBIN 31.7 pg (27.0-31.0); MEAN CORPUSCULAR HGB CONC 34.4 g/dL (33.0-37.0); MEAN PLATELET VOLUME 8.5 fL (7.2-11.7); MONO # 0.8 K/uL (0.0-0.8); MONO % 9.2 % (0.0-10.0); NEUT # 5.9 K/uL (1.8-7.0); NEUT % 70.9 % (50.0-75.0); NRBC % 0.1 % (0.0-2.0); RBC 3.79 Mil/uL (3.80-5.20); RED CELL DISTRIBUTION WIDTH 19.1 % (11.5-14.5); WHITE BLOOD COUNT 8.3 K/uL (4.8-10.8)
[2018-03-06 06:42] LABS: ALBUMIN 3.1 g/dL (3.5-5.0); ALT/SGPT 37 U/L (9-52); AST/SGOT 20 U/L (14-36); BLOOD UREA NITROGEN 8 mg/dL (7-17); CALCIUM 8.7 mg/dl (8.6-10.4); CK-MB 0.31 ng/mL (0.0-3.38); GFR NON-AFRICAN AMERICAN > 60
--- NOTE | 2018-03-06 09:00 | CP.CCUPN ---
<Mikki Biggs - Last Filed: 03/06/18 11:36> CCU Subjective - Physician Review Subjective (Free Text): 03/06/18 11:36 ICU Progress note Patient seen and examined at bedside. She states she no longer feels as short of breath anymore. She denies feeling chest heaviness. She denies fevers, chills , abdominal pain, nausea, vomiting, diarrhea. Complains of mild dysuria, however is unsure if that is related to being on fluid restriction. CCU Objective - Vital Signs / Intake & Output Vital Signs (Last 4 hours): Vital Signs Pulse Resp BP Pulse Ox 03/06/18 07:00 59 L 38 H 131/63 91 L 03/06/18 06:00 60 40 H 128/65 91 L Intake and Output (Last 8hrs): Intake & Output 03/05/18 03/06/18 03/06/18 22:59 06:59 14:59 Intake Total 560 200 0 Output Total 3600 1100 Balance -3040 -900 0 Weight 156 lb 152 lb 12.485 oz Intake: Intake, IV Amount 100 0 Right Antecubital 100 0 Oral 560 100 Output: Urine 3600 1100 Urine, Voided 1400 1100 Other: # Voids Urine, Voided 1 1 # Bowel Movements 1 - Physical Exam Head: Positive for: Atraumatic, Normocephalic Pupils: Positive for: PERRL Extroacular Muscles: Positive for: EOMI Mouth: Positive for: Moist Mucous Membranes Respiratory/Chest: Positive for: Rales (fine bibasilar rales). Negative for: Respiratory Distress, Accessory Muscle Use Cardiovascular: Positive for: Regular Rate and Rhythm, Normal S1, S2 Abdomen: Positive for: Other (Sutures in place from C section with no evidence of infection ). Negative for: Tenderness Upper Extremity: Positive for: NORMAL PULSES. Negative for: Edema Lower Extremity: Positive for: Edema (Pedal edema bilaterally), NORMAL PULSES. Negative for: CALF TENDERNESS Neurological: Positive for: GCS=15, CN II-XII Intact, Speech Normal Skin: Positive for: Warm, Dry Psychiatric: Positive for: Alert, Oriented x 3 - Medications Active Medications: Active Medications Generic Name Dose Route Start Last Admin Trade Name Freq PRN Reason Stop Dose Admin Enoxaparin Sodium 40 mg 03/06/18 10:00 03/05/18 16:40 Lovenox SC 40 mg DAILY REINALDO Administration Escitalopram Oxalate 20 mg 03/06/18 10:00 Lexapro PO DAILY REINALDO Furosemide 20 mg 03/06/18 10:00 Lasix IVP DAILY [facility] Piperacillin Sod/Tazobactam Sod 3.375 gm in 50 mls @ 100 mls/hr 03/05/18 17: 30 03/06/18 05:40 Zosyn 3.375 Gm Iv Premix IVPB 100 mls/hr Q6H REINALDO Administration Protocol Oxycodone/Acetaminophen 1 tab 03/05/18 18:46 Percocet 5/325 Mg Tab PO 03/08/18 18:47 Q6H PRN Pain, moderate (4-7) Pantoprazole Sodium 40 mg 03/06/18 10:00 Protonix Inj IVP DAILY [facility] Pneumococcal Polyvalent Vaccine 0.5 ml 03/07/18 10:00 Pneumovax 23 Vaccine SC 03/07/18 10:01 .ONCE ONE Polyethylene Glycol 17 gm 03/06/18 10:00 Miralax PO DAILY [facility] - Patient Studies Lab Studies: Lab Studies 03/06/18 03/06/18 03/05/18 Range/Units 06:06 06:06 20:55 WBC 8.3 9.4 (4.8-10.8) K/uL RBC 3.79 L 3.78 L (3.80-5.20) Mil/uL Hgb 12.0 11.9 (11.0-16.0) g/dL Hct 35.0 35.1 (34.0-47.0) % MCV 92.3 92.8 (81.0-99.0) fL MCH 31.7 H 31.3 H (27.0-31.0) pg MCHC 34.4 33.8 (33.0-37.0) g/dL RDW 19.1 H 19.2 H (11.5-14.5) % Plt Count 312 296 (130-400) K/uL MPV 8.5 8.1 (7.2-11.7) fL Neut % (Auto) 70.9 77.7 H (50.0-75.0) % Lymph % (Auto) 18.2 L 14.9 L (20.0-40.0) % [place] % (Auto) 9.2 5.7 (0.0-10.0) % Eos % (Auto) 1.0 0.7 (0.0-4.0) % Baso % (Auto) 0.7 1.0 (0.0-2.0) % Neut # (Auto) 5.9 7.3 H (1.8-7.0) K/uL Lymph # (Auto) 1.5 1.4 (1.0-4.3) K/uL [place] # (Auto) 0.8 0.5 (0.0-0.8) K/uL Eos # (Auto) 0.1 0.1 (0.0-0.7) K/uL Baso # (Auto) 0.1 0.1 (0.0-0.2) K/uL D-Dimer, Quantitative (0-243) ng/mlDDU Sodium 144 (132-148) mmol/L Potassium 3.7 (3.6-5.2) mmol/L Chloride 110 H (98-107) mmol/L Carbon Dioxide 23 (22-30) mmol/L Anion Gap 15 (10-20) BUN 8 (7-17) mg/dL Creatinine 0.4 L (0.7-1.2) mg/dL Est GFR ( Amer) > 60 Est GFR (Non-Af Amer) > 60 Random Glucose 99 (65-105) mg/dL Calcium 8.7 (8.6-10.4) mg/dl Phosphorus 4.7 H (2.5-4.5) mg/dL Magnesium 1.9 (1.6-2.3) mg/dL Total Bilirubin 0.4 (0.2-1.3) mg/dL AST 20 (14-36) U/L ALT 37 (9-52) U/L Alkaline Phosphatase 114 (38-126) U/L Total Creatine Kinase 42 (30-135) U/L CK-MB (Mass) 0.31 (0.0-3.38) ng/mL Troponin I 0.0250 (0.00-0.120) ng/mL NT-Pro-B Natriuret Pep (0-450) pg/mL Total Protein 6.4 (6.3-8.3) g/dL Albumin 3.1 L (3.5-5.0) g/dL Globulin 3.2 (2.2-3.9) gm/dL Albumin/Globulin Ratio 1.0 (1.0-2.1) Procalcitonin (0.19-0.49) NG/ML 03/05/18 03/05/18 03/05/18 Range/Units 20:55 16:38 16:16 WBC (4.8-10.8) K/uL RBC (3.80-5.20) Mil/uL Hgb (11.0-16.0) g/dL Hct (34.0-47.0) % MCV (81.0-99.0) fL MCH (27.0-31.0) pg MCHC (33.0-37.0) g/dL RDW (11.5-14.5) % Plt Count (130-400) K/uL MPV (7.2-11.7) fL Neut % (Auto) (50.0-75.0) % Lymph % (Auto) (20.0-40.0) % [place] % (Auto) (0.0-10.0) % Eos % (Auto) (0.0-4.0) % Baso % (Auto) (0.0-2.0) % Neut # (Auto) (1.8-7.0) K/uL Lymph # (Auto) (1.0-4.3) K/uL [place] # (Auto) (0.0-0.8) K/uL Eos # (Auto) (0.0-0.7) K/uL Baso # (Auto) (0.0-0.2) K/uL D-Dimer, Quantitative (0-243) ng/mlDDU Sodium 145 (132-148) mmol/L Potassium 3.4 L (3.6-5.2) mmol/L Chloride 111 H (98-107) mmol/L Carbon Dioxide 24 (22-30) mmol/L Anion Gap 13 (10-20) BUN 7 (7-17) mg/dL Creatinine 0.4 L (0.7-1.2) mg/dL Est GFR ( Amer) > 60 Est GFR (Non-Af Amer) > 60 Random Glucose 104 (65-105) mg/dL Calcium 7.9 L (8.6-10.4) mg/dl Phosphorus 4.3 (2.5-4.5) mg/dL Magnesium 1.6 (1.6-2.3) mg/dL Total Bilirubin 0.4 (0.2-1.3) mg/dL AST 25 (14-36) U/L ALT 34 (9-52) U/L Alkaline Phosphatase 98 (38-126) U/L Total Creatine Kinase 53 57 (30-135) U/L CK-MB (Mass) 0.25 0.42 (0.0-3.38) ng/mL Troponin I 0.0200 0.0400 (0.00-0.120) ng/mL NT-Pro-B Natriuret Pep 2760 H (0-450) pg/mL Total Protein 5.9 L (6.3-8.3) g/dL Albumin 2.9 L (3.5-5.0) g/dL Globulin 2.9 (2.2-3.9) gm/dL Albumin/Globulin Ratio 1.0 (1.0-2.1) Procalcitonin < 0.05 L (0.19-0.49) NG/ML 03/05/18 03/05/18 03/05/18 Range/Units 11:48 11:48 11:48 WBC 9.4 (4.8-10.8) K/uL RBC 3.44 L (3.80-5.20) Mil/uL Hgb 10.9 L (11.0-16.0) g/dL Hct 32.3 L (34.0-47.0) % MCV 93.9 (81.0-99.0) fL MCH 31.6 H (27.0-31.0) pg MCHC 33.6 (33.0-37.0) g/dL RDW 18.9 H (11.5-14.5) % Plt Count 271 D (130-400) K/uL MPV 8.4 (7.2-11.7) fL Neut % (Auto) 73.4 (50.0-75.0) % Lymph % (Auto) 16.6 L (20.0-40.0) % [place] % (Auto) 7.6 (0.0-10.0) % Eos % (Auto) 1.8 (0.0-4.0) % Baso % (Auto) 0.6 (0.0-2.0) % Neut # (Auto) 6.9 (1.8-7.0) K/uL Lymph # (Auto) 1.6 (1.0-4.3) K/uL [place] # (Auto) 0.7 (0.0-0.8) K/uL Eos # (Auto) 0.2 (0.0-0.7) K/uL Baso # (Auto) 0.1 (0.0-0.2) K/uL D-Dimer, Quantitative 3796 H (0-243) ng/mlDDU Sodium 144 (132-148) mmol/L Potassium 3.8 (3.6-5.2) mmol/L Chloride 110 H (98-107) mmol/L Carbon Dioxide 23 (22-30) mmol/L Anion Gap 14 (10-20) BUN 7 (7-17) mg/dL Creatinine 0.6 L (0.7-1.2) mg/dL Est GFR ( Amer) > 60 Est GFR (Non-Af Amer) > 60 Random Glucose 96 (65-105) mg/dL Calcium 8.7 (8.6-10.4) mg/dl Phosphorus (2.5-4.5) mg/dL Magnesium (1.6-2.3) mg/dL Total Bilirubin 0.4 (0.2-1.3) mg/dL AST 22 (14-36) U/L ALT 42 (9-52) U/L Alkaline Phosphatase 114 (38-126) U/L Total Creatine Kinase (30-135) U/L CK-MB (Mass) (0.0-3.38) ng/mL Troponin I (0.00-0.120) ng/mL NT-Pro-B Natriuret Pep (0-450) pg/mL Total Protein 5.9 L (6.3-8.3) g/dL Albumin 2.9 L (3.5-5.0) g/dL Globulin 3.0 (2.2-3.9) gm/dL Albumin/Globulin Ratio 1.0 (1.0-2.1) Procalcitonin (0.19-0.49) NG/ML Laboratory Results - last 24 hr 03/05/18 03/05/18 03/05/18 11:48 11:48 11:48 WBC 9.4 RBC 3.44 L Hgb 10.9 L Hct 32.3 L MCV 93.9 MCH 31.6 H MCHC 33.6 RDW 18.9 H Plt Count 271 D MPV 8.4 Neut % (Auto) 73.4 Lymph % (Auto) 16.6 L [place] % (Auto) 7.6 Eos % (Auto) 1.8 Baso % (Auto) 0.6 Neut # (Auto) 6.9 Lymph # (Auto) 1.6 [place] # (Auto) 0.7 Eos # (Auto) 0.2 Baso # (Auto) 0.1 D-Dimer, Quantitative 3796 H Sodium 144 Potassium 3.8 Chloride 110 H Carbon Dioxide 23 Anion Gap 14 BUN 7 Creatinine 0.6 L Est GFR ( Amer) > 60 Est GFR (Non-Af Amer) > 60 Random Glucose 96 Calcium 8.7 Phosphorus Magnesium Total Bilirubin 0.4 AST 22 ALT 42 Alkaline Phosphatase 114 Total Creatine Kinase CK-MB (Mass) Troponin I NT-Pro-B Natriuret Pep Total Protein 5.9 L Albumin 2.9 L Globulin 3.0 Albumin/Globulin Ratio 1.0 Procalcitonin 03/05/18 03/05/18 03/05/18 16:16 16:38 20:55 WBC RBC Hgb Hct MCV MCH MCHC RDW Plt Count MPV Neut % (Auto) Lymph % (Auto) [place] % (Auto) Eos % (Auto) Baso % (Auto) Neut # (Auto) Lymph # (Auto) [place] # (Auto) Eos # (Auto) Baso # (Auto) D-Dimer, Quantitative Sodium 145 Potassium 3.4 L Chloride 111 H Carbon Dioxide 24 Anion Gap 13 BUN 7 Creatinine 0.4 L Est GFR ( Amer) > 60 Est GFR (Non-Af Amer) > 60 Random Glucose 104 Calcium 7.9 L Phosphorus 4.3 Magnesium 1.6 Total Bilirubin 0.4 AST 25 ALT 34 Alkaline Phosphatase 98 Total Creatine Kinase 57 53 CK-MB (Mass) 0.42 0.25 Troponin I 0.0400 0.0200 NT-Pro-B Natriuret Pep 2760 H Total Protein 5.9 L Albumin 2.9 L Globulin 2.9 Albumin/Globulin Ratio 1.0 Procalcitonin < 0.05 L 03/05/18 03/06/18 03/06/18 20:55 06:06 06:06 WBC 9.4 8.3 RBC 3.78 L 3.79 L Hgb 11.9 12.0 Hct 35.1 35.0 MCV 92.8 92.3 MCH 31.3 H 31.7 H MCHC 33.8 34.4 RDW 19.2 H 19.1 H Plt Count 296 312 MPV 8.1 8.5 Neut % (Auto) 77.7 H 70.9 Lymph % (Auto) 14.9 L 18.2 L [place] % (Auto) 5.7 9.2 Eos % (Auto) 0.7 1.0 Baso % (Auto) 1.0 0.7 Neut # (Auto) 7.3 H 5.9 Lymph # (Auto) 1.4 1.5 [place] # (Auto) 0.5 0.8 Eos # (Auto) 0.1 0.1 Baso # (Auto) 0.1 0.1 D-Dimer, Quantitative Sodium 144 Potassium 3.7 Chloride 110 H Carbon Dioxide 23 Anion Gap 15 BUN 8 Creatinine 0.4 L Est GFR ( Amer) > 60 Est GFR (Non-Af Amer) > 60 Random Glucose 99 Calcium 8.7 Phosphorus 4.7 H Magnesium 1.9 Total Bilirubin 0.4 AST 20 ALT 37 Alkaline Phosphatase 114 Total Creatine Kinase 42 CK-MB (Mass) 0.31 Troponin I 0.0250 NT-Pro-B Natriuret Pep Total Protein 6.4 Albumin 3.1 L Globulin 3.2 Albumin/Globulin Ratio 1.0 Procalcitonin EKG/Cardiology Studies: Cardiology / EKG Studies 03/05/18 11:27 EKG [ELECTROCARDIOGRAM] Stat Comment: Mode Of Transportation: Reason For Exam: SOB Review of Systems - Constitutional Constitutional: absent: Fever, Chills - Cardiovascular Cardiovascular: absent: Chest Pain, Dyspnea - Respiratory Respiratory: absent: Cough, Dyspnea - Gastrointestinal Gastrointestinal: absent: Abdominal Pain, Diarrhea, Nausea, Vomiting - Genitourinary Genitourinary: absent: Dysuria - Musculoskeletal Musculoskeletal: absent: Back Pain Critical Care Progress Note - Nutrition Nutrition: Nutrition Category Date Time Status Heart Healthy Diet [DIET] Diets 03/05/18 Breakfast Active Assessment/Plan - Assessment and Plan (Free Text) Assessment: 37 year old female who is s/p C section on 02/27/18 who presented with shortness of breath and chest heaviness that started this morning. Patient admitted to ICU to r/o cardiomyopathy. Plan: Neuro Alert and oriented x3 History of depression Continue to monitor Lexapro 20mg PO daily Cardiovascular Concern for cardiomyopathy Cardio Dr. Craig consulted, help appreciated ECHO ordered. 1L fluid restriction Lasix 40mg IV daily Trops x3 negative Daily weights proBNP 2760 Pulmonary O2 via [place] CTA chest: cardiomegaly. small pericardial fluid. no large central or segmental PE evident. Axillary adenopathy measuring up to 13mm in short axis in left. Findings which appear to be consistent with pulmonary edema. Infection is not excluded. Small bilateral pleural effusions and associated consolidations. CXR: patchy bilateral lower lobe consolidations may reflect infection or edema. Cardiomegaly. Dopplers: negative for clots GI Heart healthy, low sodium diet 1L fluid restriction Protonix 40mg IV daily Miralax Renal 1L fluid restriction Daily weights Low sodium diet Endo Maintain euglycemia Renal 1L fluid restriction Daily weights I&Os ID Zosyn 3.375g IV Q8 procalcitonin <0.05 OBGYN s/p C section on 02/27/[address] Szymanski Percocet PRN PPX: Lovenox, Protonix <Jacob Hummel S - Last Filed: 03/06/18 18:39> CCU Subjective - Physician Review Critical Care Time Spent (in minutes): 30 CCU Objective - Vital Signs / Intake & Output Vital Signs (Last 4 hours): Vital Signs Temp Pulse Resp BP Pulse Ox 03/06/18 18:00 66 32 H 116/65 93 L 03/06/18 17:00 59 L 16 122/68 03/06/18 16:01 54 L 32 H 125/74 93 L 03/06/18 16:00 98.6 F 96 03/06/18 15:01 52 L 31 H 127/57 L 91 L 03/06/18 15:00 58 L 21 90 L Intake and Output (Last 8hrs): Intake & Output 03/06/18 03/06/18 03/06/18 06:59 14:59 22:59 Intake Total 200 150 110 Output Total 1100 1350 350 Balance -900 -1200 -240 Weight 152 lb 12.485 oz Intake: Intake, IV Amount 100 50 50 Right Antecubital 100 50 50 Oral 100 100 60 Output: Urine 1100 1350 350 Urine, Voided 1100 1350 350 Other: # Voids Urine, Voided 1 # Bowel Movements 1 - Medications Active Medications: Active Medications Generic Name Dose Route Start Last Admin Trade Name Freq PRN Reason Stop Dose Admin Enoxaparin Sodium 40 mg 03/06/18 10:00 03/06/18 10:48 Lovenox SC 40 mg DAILY [facility] Administration Escitalopram Oxalate 20 mg 03/06/18 10:00 03/06/18 17:31 Lexapro PO 20 mg DAILY [facility] Administration Furosemide 40 mg 03/06/18 10:00 03/06/18 10:48 Lasix IVP 40 mg DAILY [facility] Administration Piperacillin Sod/Tazobactam Sod 3.375 gm in 50 mls @ 100 mls/hr 03/05/18 17: 30 03/06/18 17:31 Zosyn 3.375 Gm Iv Premix IVPB 100 mls/hr Q6H [facility] Administration Protocol Oxycodone/Acetaminophen 1 tab 03/05/18 18:46 Percocet 5/325 Mg Tab PO 03/08/18 18:47 Q6H PRN Pain, moderate (4-7) Pantoprazole Sodium 40 mg 03/06/18 10:00 03/06/18 10:48 Protonix Inj IVP 40 mg DAILY [facility] Administration Pneumococcal Polyvalent Vaccine 0.5 ml 03/07/18 10:00 Pneumovax 23 Vaccine SC 03/07/18 10:01 .ONCE ONE Polyethylene Glycol 17 gm 03/06/18 10:00 03/06/18 10:00 Miralax PO Not Given DAILY [facility] - Patient Studies Lab Studies: Lab Studies 03/06/18 03/06/18 03/06/18 Range/Units 15:42 06:06 06:06 WBC 8.3 (4.8-10.8) K/uL RBC 3.79 L (3.80-5.20) Mil/uL Hgb 12.0 (11.0-16.0) g/dL Hct 35.0 (34.0-47.0) % MCV 92.3 (81.0-99.0) fL MCH 31.7 H (27.0-31.0) pg MCHC 34.4 (33.0-37.0) g/dL RDW 19.1 H (11.5-14.5) % Plt Count 312 (130-400) K/uL MPV 8.5 (7.2-11.7) fL Neut % (Auto) 70.9 (50.0-75.0) % Lymph % (Auto) 18.2 L (20.0-40.0) % [place] % (Auto) 9.2 (0.0-10.0) % Eos % (Auto) 1.0 (0.0-4.0) % Baso % (Auto) 0.7 (0.0-2.0) % Neut # (Auto) 5.9 (1.8-7.0) K/uL Lymph # (Auto) 1.5 (1.0-4.3) K/uL [place] # (Auto) 0.8 (0.0-0.8) K/uL Eos # (Auto) 0.1 (0.0-0.7) K/uL Baso # (Auto) 0.1 (0.0-0.2) K/uL Sodium 144 (132-148) mmol/L Potassium 3.7 (3.6-5.2) mmol/L Chloride 110 H (98-107) mmol/L Carbon Dioxide 23 (22-30) mmol/L Anion Gap 15 (10-20) BUN 8 (7-17) mg/dL Creatinine 0.4 L (0.7-1.2) mg/dL Est GFR ( Amer) > 60 Est GFR (Non-Af Amer) > 60 Random Glucose 99 (65-105) mg/dL Calcium 8.7 (8.6-10.4) mg/dl Phosphorus 4.7 H (2.5-4.5) mg/dL Magnesium 1.9 (1.6-2.3) mg/dL Total Bilirubin 0.4 (0.2-1.3) mg/dL AST 20 (14-36) U/L ALT 37 (9-52) U/L Alkaline Phosphatase 114 (38-126) U/L Total Creatine Kinase 42 (30-135) U/L CK-MB (Mass) 0.31 (0.0-3.38) ng/mL Troponin I 0.0250 (0.00-0.120) ng/mL Total Protein 6.4 (6.3-8.3) g/dL Albumin 3.1 L (3.5-5.0) g/dL Globulin 3.2 (2.2-3.9) gm/dL Albumin/Globulin Ratio 1.0 (1.0-2.1) Urine Color Straw (YELLOW) Urine Clarity Clear (Clear) Urine pH 7.0 (5.0-8.0) Ur Specific [place] 1.008 (1.003-1.030) Urine Protein Negative (NEGATIVE) mg/dL Urine Glucose (UA) Normal (Normal) mg/dL Urine Ketones Negative (NEGATIVE) mg/dL Urine Blood 3+ H (NEGATIVE) Urine Nitrate Negative (NEGATIVE) Urine Bilirubin Negative (NEGATIVE) Urine Urobilinogen Normal (0.2-1.0) mg/dL Ur Leukocyte Esterase Neg (Negative) [place]/uL Urine WBC (Auto) 2 (0-5) /hpf Urine RBC (Auto) 16 H (0-3) /hpf 03/05/18 03/05/18 Range/Units 20:55 20:55 WBC 9.4 (4.8-10.8) K/uL RBC 3.78 L (3.80-5.20) Mil/uL Hgb 11.9 (11.0-16.0) g/dL Hct 35.1 (34.0-47.0) % MCV 92.8 (81.0-99.0) fL MCH 31.3 H (27.0-31.0) pg MCHC 33.8 (33.0-37.0) g/dL RDW 19.2 H (11.5-14.5) % Plt Count 296 (130-400) K/uL MPV 8.1 (7.2-11.7) fL Neut % (Auto) 77.7 H (50.0-75.0) % Lymph % (Auto) 14.9 L (20.0-40.0) % [place] % (Auto) 5.7 (0.0-10.0) % Eos % (Auto) 0.7 (0.0-4.0) % Baso % (Auto) 1.0 (0.0-2.0) % Neut # (Auto) 7.3 H (1.8-7.0) K/uL Lymph # (Auto) 1.4 (1.0-4.3) K/uL [place] # (Auto) 0.5 (0.0-0.8) K/uL Eos # (Auto) 0.1 (0.0-0.7) K/uL Baso # (Auto) 0.1 (0.0-0.2) K/uL Sodium 145 (132-148) mmol/L Potassium 3.4 L (3.6-5.2) mmol/L Chloride 111 H (98-107) mmol/L Carbon Dioxide 24 (22-30) mmol/L Anion Gap 13 (10-20) BUN 7 (7-17) mg/dL Creatinine 0.4 L (0.7-1.2) mg/dL Est GFR ( Amer) > 60 Est GFR (Non-Af Amer) > 60 Random Glucose 104 (65-105) mg/dL Calcium 7.9 L (8.6-10.4) mg/dl Phosphorus 4.3 (2.5-4.5) mg/dL Magnesium 1.6 (1.6-2.3) mg/dL Total Bilirubin 0.4 (0.2-1.3) mg/dL AST 25 (14-36) U/L ALT 34 (9-52) U/L Alkaline Phosphatase 98 (38-126) U/L Total Creatine Kinase 53 (30-135) U/L CK-MB (Mass) 0.25 (0.0-3.38) ng/mL Troponin I 0.0200 (0.00-0.120) ng/mL Total Protein 5.9 L (6.3-8.3) g/dL Albumin 2.9 L (3.5-5.0) g/dL Globulin 2.9 (2.2-3.9) gm/dL Albumin/Globulin Ratio 1.0 (1.0-2.1) Urine Color (YELLOW) Urine Clarity (Clear) Urine pH (5.0-8.0) Ur Specific [place] (1.003-1.030) Urine Protein (NEGATIVE) mg/dL Urine Glucose (UA) (Normal) mg/dL Urine Ketones (NEGATIVE) mg/dL Urine Blood (NEGATIVE) Urine Nitrate (NEGATIVE) Urine Bilirubin (NEGATIVE) Urine Urobilinogen (0.2-1.0) mg/dL Ur Leukocyte Esterase (Negative) [place]/uL Urine WBC (Auto) (0-5) /hpf Urine RBC (Auto) (0-3) /hpf Laboratory Results - last 24 hr 03/05/18 03/05/18 03/06/18 20:55 20:55 06:06 WBC 9.4 8.3 RBC 3.78 L 3.79 L Hgb 11.9 12.0 Hct 35.1 35.0 MCV 92.8 92.3 MCH 31.3 H 31.7 H MCHC 33.8 34.4 RDW 19.2 H 19.1 H Plt Count 296 312 MPV 8.1 8.5 Neut % (Auto) 77.7 H 70.9 Lymph % (Auto) 14.9 L 18.2 L [place] % (Auto) 5.7 9.2 Eos % (Auto) 0.7 1.0 Baso % (Auto) 1.0 0.7 Neut # (Auto) 7.3 H 5.9 Lymph # (Auto) 1.4 1.5 [place] # (Auto) 0.5 0.8 Eos # (Auto) 0.1 0.1 Baso # (Auto) 0.1 0.1 Sodium 145 Potassium 3.4 L Chloride 111 H Carbon Dioxide 24 Anion Gap 13 BUN 7 Creatinine 0.4 L Est GFR ( Amer) > 60 Est GFR (Non-Af Amer) > 60 Random Glucose 104 Calcium 7.9 L Phosphorus 4.3 Magnesium 1.6 Total Bilirubin 0.4 AST 25 ALT 34 Alkaline Phosphatase 98 Total Creatine Kinase 53 CK-MB (Mass) 0.25 Troponin I 0.0200 Total Protein 5.9 L Albumin 2.9 L Globulin 2.9 Albumin/Globulin Ratio 1.0 Urine Color Urine Clarity Urine pH Ur Specific [place] Urine Protein Urine Glucose (UA) Urine Ketones Urine Blood Urine Nitrate Urine Bilirubin Urine Urobilinogen Ur Leukocyte Esterase Urine WBC (Auto) Urine RBC (Auto) 03/06/18 03/06/18 06:06 15:42 WBC RBC Hgb Hct MCV MCH MCHC RDW Plt Count MPV Neut % (Auto) Lymph % (Auto) [place] % (Auto) Eos % (Auto) Baso % (Auto) Neut # (Auto) Lymph # (Auto) [place] # (Auto) Eos # (Auto) Baso # (Auto) Sodium 144 Potassium 3.7 Chloride 110 H Carbon Dioxide 23 Anion Gap 15 BUN 8 Creatinine 0.4 L Est GFR ( Amer) > 60 Est GFR (Non-Af Amer) > 60 Random Glucose 99 Calcium 8.7 Phosphorus 4.7 H Magnesium 1.9 Total Bilirubin 0.4 AST 20 ALT 37 Alkaline Phosphatase 114 Total Creatine Kinase 42 CK-MB (Mass) 0.31 Troponin I 0.0250 Total Protein 6.4 Albumin 3.1 L Globulin 3.2 Albumin/Globulin Ratio 1.0 Urine Color Straw Urine Clarity Clear Urine pH 7.0 Ur Specific [place] 1.008 Urine Protein Negative Urine Glucose (UA) Normal Urine Ketones Negative Urine Blood 3+ H Urine Nitrate Negative Urine Bilirubin Negative Urine Urobilinogen Normal Ur Leukocyte Esterase Neg Urine WBC (Auto) 2 Urine RBC (Auto) 16 H Critical Care Progress Note - Nutrition Nutrition: Nutrition Category Date Time Status Heart Healthy Diet [DIET] Diets 03/05/18 Breakfast Active NPO Diet [DIET] Diets 03/07/18 Breakfast Active Attending/Attestation - Attestation I have personally seen and examined this patient.: Yes I have fully participated in the care of the patient.: Yes I have reviewed all pertinent clinical information: Yes Notes (Text): 03/06/18 18:38 patient seen and examined in the intensive care unit. Echocardiogram report noted For KASSIE tomorrow Continue diuretics
[2018-03-06] MEDS: POLYETHYLENE GLYCOL 3350 17 GM/Dose PACKET PO SCH (10:00)
[2018-03-06] MEDS: Enoxaparin 40 mg Syringe SC SCH (10:48)
--- NOTE | 2018-03-06 11:23 | RAD ---
Date of service: 03/06/2018 HISTORY: Congestive heart failure. COMPARISON: March 05, 2018. Single-view chest and CT pulmonary angiogram FINDINGS: LUNGS: Stable asymmetric infiltrates right greater than left. PLEURA: No significant pleural effusion identified, no pneumothorax apparent. CARDIOVASCULAR: Cardiomegaly. Presumed cardiogenic pulmonary edema. OSSEOUS STRUCTURES: No significant abnormalities. VISUALIZED UPPER ABDOMEN: Normal. OTHER FINDINGS: None. IMPRESSION: Stable asymmetrical pulmonary edema right greater than left. Findings confirmed on CT pulmonary angiogram March 05, 2018.
--- NOTE | 2018-03-06 11:51 | CARD ---
APPROVED REPORT Date of service: 03/05/2018 EKG Measurement Heart [id number] <Conclusion> Normal sinus rhythm Low voltage QRS Borderline ECG
[2018-03-06 15:50] LABS: URINE BILIRUBIN NEGATIVE (NEGATIVE); URINE BLOOD 3+ (NEGATIVE); URINE CLARITY Clear (Clear); URINE COLOR Straw (YELLOW); URINE GLUCOSE (UA) NORMAL (Normal); URINE LEUKOCYTE ESTERASE NEG Leu/uL (Negative); URINE PROTEIN NEGATIVE (NEGATIVE); URINE UROBILINOGEN NORMAL mg/dL (0.2-1.0)
--- NOTE | 2018-03-06 16:52 | CP.PCM.CON ---
<Ita Ann E - Last Filed: 03/06/18 17:08> History of Present Illness - History of Present Illness History of Present Illness: Cardiology consult note ( Dr. Craig's service) CC: Shortness of breath HPI: Patient is a 37 year old female, who is s/p C section on 02/27/18 who presents with shortness of breath and chest congestion that started this morning around 4-5 AM. Patient states she felt heaviness in her chest along with chest congestion and wheezing. She states she felt she couldn't cough it up because she was afraid her incision site will become open. Patient also states that she noted worsening symptoms with taking motrin for pain. She denies recent fever, chills, abdominal pain, nausea, vomiting, headache, dizziness. She states she has had swelling of her lower extremities since the of her daughter, which has worsened. She states she has been on Amoxicillin for an infection on her right thigh. PMHx: Denies PSHx: 2 X2 FHx: Father, 67 years old - Denies any FHx of cardiac disease Medications: Motrin and percocet for pain control, escitalopram and amoxicillin for right thigh cellulitis Allergies: NKDA OB Hx: G1: female, , no complications, 2010 G2: Female, , GDMA1, Review of Systems - Constitutional Constitutional: absent: Chills, Fever - EENT Ears: Dizziness - Cardiovascular Cardiovascular: Dyspnea, Leg Edema, Orthopnea, Paroxysmal Nocturnal Dyspnea - Respiratory Respiratory: Dyspnea - Gastrointestinal Gastrointestinal: absent: Abdominal Pain, Nausea, Vomiting Additional comments: incision is intact. - Genitourinary Genitourinary: absent: Difficulty Urinating - Neurological Neurological: Dizziness. absent: Numbness, Syncope, Tingling - Endocrine Endocrine: Fatigue Past Patient History - Infectious Disease Hx of Infectious Diseases: None - Past Medical History & Family History Past Medical History?: No Past Family History: Reviewed and not pertinent - Past Social History Smoking Status: Never Smoked Alcohol: None Drugs: Denies (C/S x 2) - CARDIAC Hx Hypertension: No - ENDOCRINE/METABOLIC Other/Comment: gestational diabetes - MUSCULOSKELETAL/RHEUMATOLOGICAL Hx Falls: No - PSYCHIATRIC Hx Substance Use: No - SURGICAL HISTORY Hx Surgeries: Yes Hx Section: Yes - ANESTHESIA Hx Anesthesia: Yes Hx Anesthesia Reactions: No Meds Allergies/Adverse Reactions: Allergies Allergy/AdvReac Type Severity Reaction Status Date / Time No Known Allergies Allergy Verified 03/05/18 11:23 - Medications Medications: Current Medications Enoxaparin Sodium (Lovenox) 40 mg SC DAILY [facility] Last Admin: 03/06/18 10:48 Dose: 40 mg Escitalopram Oxalate (Lexapro) 20 mg PO DAILY [facility] Furosemide (Lasix) 40 mg IVP DAILY [facility] Last Admin: 03/06/18 10:48 Dose: 40 mg Piperacillin Sod/Tazobactam Sod (Zosyn 3.375 Gm Iv Premix) 3.375 gm in 50 mls @ 100 mls/hr IVPB Q6H [facility] PRN Reason: Protocol Last Admin: 03/06/18 11:35 Dose: 100 mls/hr Oxycodone/Acetaminophen (Percocet 5/325 Mg Tab) 1 tab PO Q6H PRN PRN Reason: Pain, moderate (4-7) Stop: 03/08/18 18:47 Pantoprazole Sodium (Protonix Inj) 40 mg IVP DAILY [facility] Last Admin: 03/06/18 10:48 Dose: 40 mg Pneumococcal Polyvalent Vaccine (Pneumovax 23 Vaccine) 0.5 ml SC .ONCE ONE Stop: 03/07/18 10:01 Polyethylene Glycol (Miralax) 17 gm PO DAILY [facility] Physical Exam - Constitutional Appears: No Acute Distress - Head Exam Head Exam: ATRAUMATIC - Eye Exam Eye Exam: EOMI, Normal appearance - ENT Exam ENT Exam: Mucous Membranes Moist - Respiratory Exam Respiratory Exam: Decreased Breath Sounds, NORMAL BREATHING PATTERN. absent: Rhonchi, Wheezes, Respiratory Distress Additional comments: Decreased breath sounds (Lower lobes bilaterally) - Cardiovascular Exam Cardiovascular Exam: REGULAR RHYTHM, +S1, +S2 - GI/Abdominal Exam GI & Abdominal Exam: Normal Bowel Sounds, Soft. absent: Diminished Bowel Sounds , Distended, Guarding, Tenderness - Extremities Exam Extremities exam: Positive for: pedal edema - Neurological Exam Neurological exam: Alert, Oriented x3 - Psychiatric Exam Psychiatric exam: Normal Affect - Skin Skin Exam: Normal Color Results - Vital Signs Recent Vital Signs: Last Vital Signs Temp 98.3 F 03/06/18 12:00 Pulse 52 L 03/06/18 15:01 Resp 31 H 03/06/18 15:01 BP 127/57 L 03/06/18 15:01 Pulse Ox 91 L 03/06/18 15:01 - Labs Result Diagrams: 03/06/18 06:06 03/06/18 06:06 Labs: Laboratory Results - last 24 hr 03/05/18 03/05/18 03/05/18 16:16 16:38 20:55 WBC RBC Hgb Hct MCV MCH MCHC RDW Plt Count MPV Neut % (Auto) Lymph % (Auto) [place] % (Auto) Eos % (Auto) Baso % (Auto) Neut # (Auto) Lymph # (Auto) [place] # (Auto) Eos # (Auto) Baso # (Auto) Sodium 145 Potassium 3.4 L Chloride 111 H Carbon Dioxide 24 Anion Gap 13 BUN 7 Creatinine 0.4 L Est GFR ( Amer) > 60 Est GFR (Non-Af Amer) > 60 Random Glucose 104 Calcium 7.9 L Phosphorus 4.3 Magnesium 1.6 Total Bilirubin 0.4 AST 25 ALT 34 Alkaline Phosphatase 98 Total Creatine Kinase 57 53 CK-MB (Mass) 0.42 0.25 Troponin I 0.0400 0.0200 NT-Pro-B Natriuret Pep 2760 H Total Protein 5.9 L Albumin 2.9 L Globulin 2.9 Albumin/Globulin Ratio 1.0 Procalcitonin < 0.05 L Urine Color Urine Clarity Urine pH Ur Specific [place] Urine Protein Urine Glucose (UA) Urine Ketones Urine Blood Urine Nitrate Urine Bilirubin Urine Urobilinogen Ur Leukocyte Esterase Urine WBC (Auto) Urine RBC (Auto) 03/05/18 03/06/18 03/06/18 20:55 06:06 06:06 WBC 9.4 8.3 RBC 3.78 L 3.79 L Hgb 11.9 12.0 Hct 35.1 35.0 MCV 92.8 92.3 MCH 31.3 H 31.7 H MCHC 33.8 34.4 RDW 19.2 H 19.1 H Plt Count 296 312 MPV 8.1 8.5 Neut % (Auto) 77.7 H 70.9 Lymph % (Auto) 14.9 L 18.2 L [place] % (Auto) 5.7 9.2 Eos % (Auto) 0.7 1.0 Baso % (Auto) 1.0 0.7 Neut # (Auto) 7.3 H 5.9 Lymph # (Auto) 1.4 1.5 [place] # (Auto) 0.5 0.8 Eos # (Auto) 0.1 0.1 Baso # (Auto) 0.1 0.1 Sodium 144 Potassium 3.7 Chloride 110 H Carbon Dioxide 23 Anion Gap 15 BUN 8 Creatinine 0.4 L Est GFR ( Amer) > 60 Est GFR (Non-Af Amer) > 60 Random Glucose 99 Calcium 8.7 Phosphorus 4.7 H Magnesium 1.9 Total Bilirubin 0.4 AST 20 ALT 37 Alkaline Phosphatase 114 Total Creatine Kinase 42 CK-MB (Mass) 0.31 Troponin I 0.0250 NT-Pro-B Natriuret Pep Total Protein 6.4 Albumin 3.1 L Globulin 3.2 Albumin/Globulin Ratio 1.0 Procalcitonin Urine Color Urine Clarity Urine pH Ur Specific [place] Urine Protein Urine Glucose (UA) Urine Ketones Urine Blood Urine Nitrate Urine Bilirubin Urine Urobilinogen Ur Leukocyte Esterase Urine WBC (Auto) Urine RBC (Auto) 03/06/18 15:42 WBC RBC Hgb Hct MCV MCH MCHC RDW Plt Count MPV Neut % (Auto) Lymph % (Auto) [place] % (Auto) Eos % (Auto) Baso % (Auto) Neut # (Auto) Lymph # (Auto) Hyde # (Auto) Eos # (Auto) Baso # (Auto) Sodium Potassium Chloride Carbon Dioxide Anion Gap BUN Creatinine Est GFR ( Amer) Est GFR (Non-Af Amer) Random Glucose Calcium Phosphorus Magnesium Total Bilirubin AST ALT Alkaline Phosphatase Total Creatine Kinase CK-MB (Mass) Troponin I NT-Pro-B Natriuret Pep Total Protein Albumin Globulin Albumin/Globulin Ratio Procalcitonin Urine Color Straw Urine Clarity Clear Urine pH 7.0 Ur Specific [place] 1.008 Urine Protein Negative Urine Glucose (UA) Normal Urine Ketones Negative Urine Blood 3+ H Urine Nitrate Negative Urine Bilirubin Negative Urine Urobilinogen Normal Ur Leukocyte Esterase Neg Urine WBC (Auto) 2 Urine RBC (Auto) 16 H Assessment & Plan (1) CHF (congestive heart failure) Assessment and Plan: Improving symptoms Possibly secondary to cardiomyopathy Patient is a 37 year old female, who is s/p C section on 02/27/18 who presents with shortness of breath and chest congestion that started this morning around 4-5 AM, with BNP of 2760: Chest X-ray: Stable asymmetrical pulmonary edema right greater than left. Chest CT: Cardiomegaly. Small pericardial fluid. No large central or segmental pulmonary embolus evident. Axillary adenopathy measuring up to 13 mm in short axis on the left. Findings which appear consistent with pulmonary edema ; infection is not excluded. Small bilateral pleural effusions and associated consolidations. Medication/ management: * Lasix 40mg IV daily * F/u echocardiogram Status: Acute (2) Prophylactic measure Assessment and Plan: GI: Protonix 40mg IV daily DVT: Lovenox 40mg SC daily All plans and management discussed with Dr. Craig Status: Acute <Robert Craig - Last Filed: 03/06/18 23:01> Meds - Medications Medications: Current Medications Enoxaparin Sodium (Lovenox) 40 mg SC DAILY [facility] Last Admin: 03/06/18 10:48 Dose: 40 mg Escitalopram Oxalate (Lexapro) 20 mg PO DAILY [facility] Last Admin: 03/06/18 17:31 Dose: 20 mg Furosemide (Lasix) 40 mg IVP DAILY [facility] Last Admin: 03/06/18 10:48 Dose: 40 mg Piperacillin Sod/Tazobactam Sod (Zosyn 3.375 Gm Iv Premix) 3.375 gm in 50 mls @ 100 mls/hr IVPB Q6H [facility] PRN Reason: Protocol Last Admin: 03/06/18 17:31 Dose: 100 mls/hr Oxycodone/Acetaminophen (Percocet 5/325 Mg Tab) 1 tab PO Q6H PRN PRN Reason: Pain, moderate (4-7) Stop: 03/08/18 18:47 Pantoprazole Sodium (Protonix Inj) 40 mg IVP DAILY [facility] Last Admin: 03/06/18 10:48 Dose: 40 mg Pneumococcal Polyvalent Vaccine (Pneumovax 23 Vaccine) 0.5 ml SC .ONCE ONE Stop: 03/07/18 10:01 Polyethylene Glycol (Miralax) 17 gm PO DAILY [facility] Last Admin: 03/06/18 10:00 Dose: Not Given Results - Vital Signs Recent Vital Signs: Last Vital Signs Temp 98.4 F 03/06/18 20:00 Pulse 70 03/06/18 19:00 Resp 36 H 03/06/18 19:00 BP 116/65 03/06/18 18:00 Pulse Ox 98 03/06/18 20:00 - Labs Result Diagrams: 03/06/18 06:06 03/06/18 06:06 Labs: Laboratory Results - last 24 hr 03/06/18 03/06/18 03/06/18 06:06 06:06 15:42 WBC 8.3 RBC 3.79 L Hgb 12.0 Hct 35.0 MCV 92.3 MCH 31.7 H MCHC 34.4 RDW 19.1 H Plt Count 312 MPV 8.5 Neut % (Auto) 70.9 Lymph % (Auto) 18.2 L Hyde % (Auto) 9.2 Eos % (Auto) 1.0 Baso % (Auto) 0.7 Neut # (Auto) 5.9 Lymph # (Auto) 1.5 [place] # (Auto) 0.8 Eos # (Auto) 0.1 Baso # (Auto) 0.1 Sodium 144 Potassium 3.7 Chloride 110 H Carbon Dioxide 23 Anion Gap 15 BUN 8 Creatinine 0.4 L Est GFR ( Amer) > 60 Est GFR (Non-Af Amer) > 60 Random Glucose 99 Calcium 8.7 Phosphorus 4.7 H Magnesium 1.9 Total Bilirubin 0.4 AST 20 ALT 37 Alkaline Phosphatase 114 Total Creatine Kinase 42 CK-MB (Mass) 0.31 Troponin I 0.0250 Total Protein 6.4 Albumin 3.1 L Globulin 3.2 Albumin/Globulin Ratio 1.0 Urine Color Straw Urine Clarity Clear Urine pH 7.0 Ur Specific [place] 1.008 Urine Protein Negative Urine Glucose (UA) Normal Urine Ketones Negative Urine Blood 3+ H Urine Nitrate Negative Urine Bilirubin Negative Urine Urobilinogen Normal Ur Leukocyte Esterase Neg Urine WBC (Auto) 2 Urine RBC (Auto) 16 H Assessment & Plan - Assessment and Plan (Free Text) Assessment: Patient seen and evaluated ECHO: Normal EF Mild to moderate AI KASSIE tomorrow to assess Aortic valve
--- NOTE | 2018-03-07 00:18 | CARD ---
APPROVED REPORT Date of service: 03/06/2018 EXAM: Two-dimensional and M-mode echocardiogram with Doppler and color Doppler. Other Information Quality : GoodRhythm : INDICATION Dyspnea Pleural Effusion Congestive Heart Failure 2D DIMENSIONS IVSd0.7 (0.7-1.1cm)LVDd5.0 (3.9-5.9cm) PWd0.6 (0.7-1.1cm)LVDs3.5 (2.5-4.0cm) FS (%) 31.2 %LVEF (%)58.7 (>50%) M-Mode DIMENSIONS Left Atrium (MM)3.83 (2.5-4.0cm)IVSd0.91 (0.7-1.1cm) Aortic Root3.17 (2.2-3.7cm)LVDd5.84 (4.0-5.6cm) Aortic Cusp Exc.2.21 (1.5-2.0cm)PWd0.69 (0.7-1.1cm) FS (%) 35 %LVDs3.81 (2.0-3.8cm) TAPSE27.88 cmLVEF (%)63 (>50%) Aortic Valve AI P 1/2 [id number] Mitral Valve MV E Bdyenwhw994.9cm/sMV A Hzxjgdud40.0cm/sE/A ratio2.1 TDI E/Lateral E'0.0E/Medial E'0.0 Tricuspid Valve TR Peak [id number]/sTR Peak Gr.[id number] LEFT VENTRICLE The left ventricle is normal size. There is normal left ventricular wall thickness. Left ventricle systolic function is normal. The Ejection Fraction is 65-70%. There is normal LV segmental wall motion. The left ventricular diastolic function is normal. No left ventricle thrombus noted on this study. RIGHT VENTRICLE The right ventricle is normal size. The right ventricular systolic function is normal. ATRIA The left atrium is mildly dilated. The right atrium size is normal. AORTIC VALVE The aortic valve is mildly to moderately sclerotic. There is mild to moderate aortic regurgitation. There is no aortic valvular stenosis. There is no aortic valvular vegetation. MITRAL VALVE Mitral annular calcification is mild to moderate. There is no evidence of mitral valve prolapse. There is no mitral valve stenosis. Mitral regurgitation is mild. TRICUSPID VALVE The tricuspid valve is normal in structure. There is mild tricuspid regurgitation. Right ventricular systolic pressure is estimated at less than 30 mmHg. There is no pulmonary hypertension. There is no tricuspid valve prolapse or vegetation. There is no tricuspid valve stenosis. PULMONIC VALVE The pulmonary valve is normal in structure. There is mild pulmonic valvular regurgitation. There is no pulmonic valvular stenosis. GREAT VESSELS The aortic root is normal in size. The IVC is normal in size and collapses >50% with inspiration. PERICARDIAL EFFUSION There is no pericardial effusion. There is no pleural effusion. <Conclusion> The left ventricle is normal size. Left ventricle systolic function is normal. The Ejection Fraction is 65-70%. The left ventricular diastolic function is normal. The right ventricle is normal size. The right ventricular systolic function is normal. The left atrium is mildly dilated. The right atrium size is normal. There is mild to moderate aortic regurgitation. Mitral regurgitation is mild. There is mild tricuspid regurgitation. There is mild pulmonic valvular regurgitation.
[2018-03-07] MEDS: Piperacill/Tazo 3.375gm in Dex 3.375 GM/50 ML BAG IVPB SCH ×3 (05:24→17:08)
[2018-03-07 06:11] LABS: BASO # 0.1 K/uL (0.0-0.2); BASO % 1.2 % (0.0-2.0); EOS # 0.3 K/uL (0.0-0.7); EOS % 3.4 % (0.0-4.0); LYMPH # 2.1 K/uL (1.0-4.3); LYMPH % 26.2 % (20.0-40.0); MEAN CELL VOLUME 92.9 fL (81.0-99.0); MEAN CORPUSCULAR HEMOGLOBIN 31.5 pg (27.0-31.0); MEAN CORPUSCULAR HGB CONC 33.9 g/dL (33.0-37.0); MEAN PLATELET VOLUME 8.3 fL (7.2-11.7); MONO # 0.9 K/uL (0.0-0.8); MONO % 11.3 % (0.0-10.0); NEUT # 4.7 K/uL (1.8-7.0); NEUT % 57.9 % (50.0-75.0); NRBC % 0.1 % (0.0-2.0); RBC 4.12 Mil/uL (3.80-5.20); RED CELL DISTRIBUTION WIDTH 18.1 % (11.5-14.5)
[2018-03-07 06:35] LABS: ALBUMIN 3.3 g/dL (3.5-5.0); ALT/SGPT 32 U/L (9-52); AST/SGOT 21 U/L (14-36); BLOOD UREA NITROGEN 12 mg/dL (7-17); CALCIUM 8.7 mg/dl (8.6-10.4); GFR NON-AFRICAN AMERICAN > 60
[2018-03-07] MEDS ORDERED: Propofol 10 mg/ml Inj (20 ML) ONE (08:15)
[2018-03-07] MEDS ORDERED: Midazolam 2 MG/2 ML VIAL ONE ×2 (08:15)
[2018-03-07] MEDS ORDERED: Lidocaine 4% (Laryng-O-Jet) Kit MM ONE (08:21)
[2018-03-07] MEDS ORDERED: Albuterol 0.083% Inhal Sol (2.5 mg/3 mL) UD INH PRN (08:54)
[2018-03-07] MEDS ORDERED: Potassium Chloride 20 mEq ER Tab PO ONE (09:00)
[2018-03-07] MEDS: Enoxaparin 40 mg Syringe SC SCH (09:25)
[2018-03-07] MEDS: POLYETHYLENE GLYCOL 3350 17 GM/Dose PACKET PO SCH ×2 (09:25→10:00)
[2018-03-07] MEDS ORDERED: Pneumococcal 23-Valent Vaccine SC ONE (10:00)
[2018-03-07 16:05] VITALS: TEMP 98.2
[2018-03-07 17:31] VITALS: BP 125/63; PULSE 49; RESP 18; O2SAT 94
--- NOTE | 2018-03-07 18:28 | CP.PCM.PN ---
Subjective - Date & Time of Evaluation Date of Evaluation: 03/07/18 Time of Evaluation: 10:50 - Subjective Subjective: Cardiology progress note ( Dr. Craig's service) Patient was seen and examined at bedside. Patient states improving symptoms and denies chest pain, palpitations, SOB, dizziness. Patient had a bedside KASSIE done today. Objective - Vital Signs/Intake and Output Vital Signs (last 24 hours): Temp Pulse Resp BP Pulse Ox 98.2 F 49 L 18 125/63 94 L 03/07/18 16:00 03/07/18 15:30 03/07/18 15:30 03/07/18 15:30 03/07/18 15:30 Intake and Output: 03/07/18 03/07/18 06:59 18:59 Intake Total 200 360 Output Total 250 1400 Balance -50 -1040 - Medications Medications: Current Medications Acetaminophen (Tylenol 325mg Tab) 650 mg PO Q6 PRN PRN Reason: Headache Last Admin: 03/07/18 10:09 Dose: 650 mg Albuterol Sulfate (Albuterol 0.083% Inhal Beth (2.5 Mg/3 Ml) Ud) 2.5 mg INH RQ6 PRN PRN Reason: Wheezing Last Admin: 03/07/18 09:33 Dose: 2.5 mg Enoxaparin Sodium (Lovenox) 40 mg SC DAILY [facility] Last Admin: 03/07/18 09:25 Dose: 40 mg Escitalopram Oxalate (Lexapro) 20 mg PO DAILY [facility] Last Admin: 03/07/18 09:24 Dose: 20 mg Furosemide (Lasix) 40 mg IVP DAILY [facility] Last Admin: 03/07/18 09:24 Dose: 40 mg Piperacillin Sod/Tazobactam Sod (Zosyn 3.375 Gm Iv Premix) 3.375 gm in 50 mls @ 100 mls/hr IVPB Q6H [facility] PRN Reason: Protocol Last Admin: 03/07/18 17:08 Dose: 100 mls/hr Oxycodone/Acetaminophen (Percocet 5/325 Mg Tab) 1 tab PO Q6H PRN PRN Reason: Pain, moderate (4-7) Stop: 03/08/18 18:47 Last Admin: 03/07/18 02:00 Dose: 1 tab Pantoprazole Sodium (Protonix Inj) 40 mg IVP DAILY [facility] Last Admin: 03/07/18 09:24 Dose: 40 mg Polyethylene Glycol (Miralax) 17 gm PO DAILY [facility] Last Admin: 03/07/18 10:00 Dose: Not Given - Labs Labs: 03/07/18 05:58 03/07/18 05:58 - Constitutional Appears: Non-toxic - Head Exam Head Exam: ATRAUMATIC - Eye Exam Eye Exam: EOMI - Respiratory Exam Respiratory Exam: Decreased Breath Sounds, NORMAL BREATHING PATTERN Additional comments: Decreased breath sounds in bilateral lower lobes Mild rales in bilateral lower lobes - Cardiovascular Exam Cardiovascular Exam: REGULAR RHYTHM, +S1, +S2 - GI/Abdominal Exam GI & Abdominal Exam: Soft, Normal Bowel Sounds. absent: Guarding, Rigid, Tenderness - Neurological Exam Neurological Exam: Alert, Awake, Oriented x3 - Psychiatric Exam Psychiatric exam: Normal Affect - Skin Skin Exam: Normal Color Assessment and Plan (1) CHF (congestive heart failure) Assessment & Plan: Improving symptoms Patient is a 37 year old female, who is s/p C section on 02/27/18 who presents with shortness of breath and chest congestion that started this morning around 4-5 AM, with BNP of 2760: Chest X-ray: Stable asymmetrical pulmonary edema right greater than left. Chest CT: Cardiomegaly. Small pericardial fluid. No large central or segmental pulmonary embolus evident. Axillary adenopathy measuring up to 13 mm in short axis on the left. Findings which appear consistent with pulmonary edema ; infection is not excluded. Small bilateral pleural effusions and associated consolidations. Echocardiogram: LV is normal size. EF (65-70%), LV diastolic function is normal. RV is normal size. RV systolic function is normal. Mild to moderate AR. MR is mild and mild TR/ Pulmonic valve regurgitation KASSIE: Noted for moderate aortic regurgitation. EF is normal. Please wait for official report Medication/ management: * Lasix 40mg IV daily Status: Acute (2) Prophylactic measure Assessment & Plan: GI: Protonix 40mg IV daily DVT: Lovenox 40mg SC daily Moderate aortic regurgitation BP control as needed Diet control, decrease salt intake Lasix dose prn as needed for symptomatic F/u outpatient cardiology in one month All plans and management discussed with Dr. Craig Status: Acute
--- NOTE | 2018-03-07 18:58 | CP.PCM.DIS ---
Provider - Provider Date of Admission: 03/05/18 16:26 Attending physician: Mitul Aldana MD Hospital Course - Lab Results Lab Results: Micro Results 03/06/18 15:42 Urine,Clean Catch Urine Culture - Final No Growth (<1,000 CFU/ML) 03/05/18 20:45 Naris MRSA Culture (Admit) - Final MRSA NOT DETECTED Most Recent Lab Values WBC 8.0 K/uL (4.8-10.8) 03/07/18 05:58 RBC 4.12 Mil/uL (3.80-5.20) 03/07/18 05:58 Hgb 13.0 g/dL (11.0-16.0) 03/07/18 05:58 Hct 38.3 % (34.0-47.0) 03/07/18 05:58 MCV 92.9 fL (81.0-99.0) 03/07/18 05:58 MCH 31.5 pg (27.0-31.0) H 03/07/18 05:58 MCHC 33.9 g/dL (33.0-37.0) 03/07/18 05:58 RDW 18.1 % (11.5-14.5) H 03/07/18 05:58 Plt Count 306 K/uL (130-400) 03/07/18 05:58 MPV 8.3 fL (7.2-11.7) 03/07/18 05:58 Neut % (Auto) 57.9 % (50.0-75.0) 03/07/18 05:58 Lymph % (Auto) 26.2 % (20.0-40.0) 03/07/18 05:58 [place] % (Auto) 11.3 % (0.0-10.0) H 03/07/18 05:58 Eos % (Auto) 3.4 % (0.0-4.0) 03/07/18 05:58 Baso % (Auto) 1.2 % (0.0-2.0) 03/07/18 05:58 Neut # (Auto) 4.7 K/uL (1.8-7.0) 03/07/18 05:58 Lymph # (Auto) 2.1 K/uL (1.0-4.3) 03/07/18 05:58 [place] # (Auto) 0.9 K/uL (0.0-0.8) H 03/07/18 05:58 Eos # (Auto) 0.3 K/uL (0.0-0.7) 03/07/18 05:58 Baso # (Auto) 0.1 K/uL (0.0-0.2) 03/07/18 05:58 D-Dimer, Quantitative 3796 ng/mlDDU (0-243) H 03/05/18 11:48 Sodium 142 mmol/L (132-148) 03/07/18 05:58 Potassium 3.4 mmol/L (3.6-5.2) L 03/07/18 05:58 Chloride 109 mmol/L (98-107) H 03/07/18 05:58 Carbon Dioxide 22 mmol/L (22-30) 03/07/18 05:58 Anion Gap 15 (10-20) 03/07/18 05:58 BUN 12 mg/dL (7-17) 03/07/18 05:58 Creatinine 0.4 mg/dL (0.7-1.2) L 03/07/18 05:58 Est GFR ( Amer) > 60 03/07/18 05:58 Est GFR (Non-Af Amer) > 60 03/07/18 05:58 Random Glucose 89 mg/dL (65-105) 03/07/18 05:58 Calcium 8.7 mg/dl (8.6-10.4) 03/07/18 05:58 Phosphorus 4.9 mg/dL (2.5-4.5) H 03/07/18 05:58 Magnesium 2.0 mg/dL (1.6-2.3) 03/07/18 05:58 Total Bilirubin 0.4 mg/dL (0.2-1.3) 03/07/18 05:58 AST 21 U/L (14-36) 03/07/18 05:58 ALT 32 U/L (9-52) 03/07/18 05:58 Alkaline Phosphatase 105 U/L (38-126) 03/07/18 05:58 Total Creatine Kinase 42 U/L (30-135) 03/06/18 06:06 CK-MB (Mass) 0.31 ng/mL (0.0-3.38) 03/06/18 06:06 Troponin I 0.0250 ng/mL (0.00-0.120) 03/06/18 06:06 NT-Pro-B Natriuret Pep 2760 pg/mL (0-450) H 03/05/18 16:16 Total Protein 6.5 g/dL (6.3-8.3) 03/07/18 05:58 Albumin 3.3 g/dL (3.5-5.0) L 03/07/18 05:58 Globulin 3.2 gm/dL (2.2-3.9) 03/07/18 05:58 Albumin/Globulin Ratio 1.0 (1.0-2.1) 03/07/18 05:58 Procalcitonin < 0.05 NG/ML (0.19-0.49) L 03/05/18 16:38 Urine Color Straw (YELLOW) 03/06/18 15:42 Urine Clarity Clear (Clear) 03/06/18 15:42 Urine pH 7.0 (5.0-8.0) 03/06/18 15:42 Ur Specific [place] 1.008 (1.003-1.030) 03/06/18 15:42 Urine Protein Negative mg/dL (NEGATIVE) 03/06/18 15:42 Urine Glucose (UA) Normal mg/dL (Normal) 03/06/18 15:42 Urine Ketones Negative mg/dL (NEGATIVE) 03/06/18 15:42 Urine Blood 3+ (NEGATIVE) H 03/06/18 15:42 Urine Nitrate Negative (NEGATIVE) 03/06/18 15:42 Urine Bilirubin Negative (NEGATIVE) 03/06/18 15:42 Urine Urobilinogen Normal mg/dL (0.2-1.0) 03/06/18 15:42 Ur Leukocyte Esterase Neg [place]/uL (Negative) 03/06/18 15:42 Urine WBC (Auto) 2 /hpf (0-5) 03/06/18 15:42 Urine RBC (Auto) 16 /hpf (0-3) H 03/06/18 15:42 Discharge Exam - Head Exam Head Exam: ATRAUMATIC Discharge Plan - Follow Up Plan Condition: FAIR Disposition: HOME/ ROUTINE
--- NOTE | 2018-03-07 18:58 | CP.PCM.PN ---
Subjective - Date & Time of Evaluation Date of Evaluation: 03/06/18 Time of Evaluation: 18:58 Objective - Vital Signs/Intake and Output Vital Signs (last 24 hours): Temp Pulse Resp BP Pulse Ox 98.2 F 49 L 18 125/63 94 L 03/07/18 16:00 03/07/18 15:30 03/07/18 15:30 03/07/18 15:30 03/07/18 15:30 Intake and Output: 03/07/18 03/07/18 06:59 18:59 Intake Total 200 410 Output Total 250 1400 Balance -50 -990 - Medications Medications: Current Medications Acetaminophen (Tylenol 325mg Tab) 650 mg PO Q6 PRN PRN Reason: Headache Last Admin: 03/07/18 10:09 Dose: 650 mg Albuterol Sulfate (Albuterol 0.083% Inhal Beth (2.5 Mg/3 Ml) Ud) 2.5 mg INH RQ6 PRN PRN Reason: Wheezing Last Admin: 03/07/18 09:33 Dose: 2.5 mg Enoxaparin Sodium (Lovenox) 40 mg SC DAILY [facility] Last Admin: 03/07/18 09:25 Dose: 40 mg Escitalopram Oxalate (Lexapro) 20 mg PO DAILY [facility] Last Admin: 03/07/18 09:24 Dose: 20 mg Furosemide (Lasix) 40 mg IVP DAILY [facility] Last Admin: 03/07/18 09:24 Dose: 40 mg Piperacillin Sod/Tazobactam Sod (Zosyn 3.375 Gm Iv Premix) 3.375 gm in 50 mls @ 100 mls/hr IVPB Q6H [facility] PRN Reason: Protocol Last Admin: 03/07/18 17:08 Dose: 100 mls/hr Oxycodone/Acetaminophen (Percocet 5/325 Mg Tab) 1 tab PO Q6H PRN PRN Reason: Pain, moderate (4-7) Stop: 03/08/18 18:47 Last Admin: 03/07/18 02:00 Dose: 1 tab Pantoprazole Sodium (Protonix Inj) 40 mg IVP DAILY [facility] Last Admin: 03/07/18 09:24 Dose: 40 mg Polyethylene Glycol (Miralax) 17 gm PO DAILY [facility] Last Admin: 03/07/18 10:00 Dose: Not Given - Labs Labs: 03/07/18 05:58 03/07/18 05:58
--- NOTE | 2018-03-07 18:58 | CP.PCM.HP ---
Past Patient History - Infectious Disease Hx of Infectious Diseases: None - Past Medical History & Family History Past Medical History?: No Past Family History: Reviewed and not pertinent - Past Social History Smoking Status: Never Smoked Alcohol: None Drugs: Denies (C/S x 2) - CARDIAC Hx Hypertension: No - ENDOCRINE/METABOLIC Other/Comment: gestational diabetes - MUSCULOSKELETAL/RHEUMATOLOGICAL Hx Falls: No - PSYCHIATRIC Hx Substance Use: No - SURGICAL HISTORY Hx Surgeries: Yes Hx Section: Yes - ANESTHESIA Hx Anesthesia: Yes Hx Anesthesia Reactions: No Meds Allergies/Adverse Reactions: Allergies Allergy/AdvReac Type Severity Reaction Status Date / Time No Known Allergies Allergy Verified 03/05/18 11:23 Results - Vital Signs Recent Vital Signs: Last Vital Signs Temp 98.2 F 03/07/18 16:00 Pulse 49 L 03/07/18 15:30 Resp 18 03/07/18 15:30 BP 125/63 03/07/18 15:30 Pulse Ox 94 L 03/07/18 15:30 - Labs Result Diagrams: 03/07/18 05:58 03/07/18 05:58 Labs: Laboratory Results - last 24 hr 03/07/18 03/07/18 05:58 05:58 WBC 8.0 RBC 4.12 Hgb 13.0 Hct 38.3 MCV 92.9 MCH 31.5 H MCHC 33.9 RDW 18.1 H Plt Count 306 MPV 8.3 Neut % (Auto) 57.9 Lymph % (Auto) 26.2 [place]le % (Auto) 11.3 H Eos % (Auto) 3.4 Baso % (Auto) 1.2 Neut # (Auto) 4.7 Lymph # (Auto) 2.1 [place]le # (Auto) 0.9 H Eos # (Auto) 0.3 Baso # (Auto) 0.1 Sodium 142 Potassium 3.4 L Chloride 109 H Carbon Dioxide 22 Anion Gap 15 BUN 12 Creatinine 0.4 L Est GFR ( Amer) > 60 Est GFR (Non-Af Amer) > 60 Random Glucose 89 Calcium 8.7 Phosphorus 4.9 H Magnesium 2.0 Total Bilirubin 0.4 AST 21 ALT 32 Alkaline Phosphatase 105 Total Protein 6.5 Albumin 3.3 L Globulin 3.2 Albumin/Globulin Ratio 1.0
--- NOTE | 2018-03-08 16:35 | VASCLAB ---
Date of service: 03/05/2018 PROCEDURE: Lower Extremity Venous Duplex Exam. HISTORY: leg swelling, rt calf pain, SOB PRIORS: 03/01/2018. TECHNIQUE: Bilateral common femoral, femoral, popliteal and posterior tibial, peroneal and great saphenous veins were evaluated. Flow was assessed with color Doppler, compressibility, assessment of phasic flow and augmentation response. Report prepared by Morgan Little, BS, RVT FINDINGS: RIGHT: 1. Common Femoral Vein: 1.1. Compressibility - Fully compressible: Thrombus - None : Flow - Phasic: Augmentation -Normal: Reflux - None. 2. Femoral Vein: 2.1. Compressibility - Fully compressible: Thrombus - None : Flow - Phasic: Augmentation -Normal: Reflux - None. 3. Popliteal Vein: 3.1. Compressibility - Fully compressible: Thrombus - None : Flow - Phasic: Augmentation -Normal: Reflux - None. 4. Posterior Tibial Vein: 4.1. Compressibility - Fully compressible: Thrombus - None: Flow - Phasic: Augmentation -Normal: Reflux - None. 5. Peroneal Vein: 5.1. Compressibility - Fully compressible: Thrombus - None: Flow - Phasic: Augmentation -Normal: Reflux - None. 6. Great Saphenous Vein: 6.1. Compressibility - Fully compressible: Thrombus - None: Flow - Phasic: Augmentation - Normal: Reflux - None. LEFT: 1. Common Femoral Vein: 1.1. Compressibility - Fully compressible: Thrombus - None: Flow - Phasic: Augmentation -Normal: Reflux - None. 2. Femoral Vein: 2.1. Compressibility - Fully compressible: Thrombus - None: Flow - Phasic: Augmentation -Normal: Reflux - None. 3. Popliteal Vein: 3.1. Compressibility - Fully compressible: Thrombus - None : Flow - Phasic: Augmentation -Normal: Reflux - None. 4. Posterior Tibial Vein: 4.1. Compressibility - Fully compressible: Thrombus - None: Flow - Phasic: Augmentation -Normal: Reflux - None. 5. Peroneal Vein: 5.1. Compressibility - Fully compressible: Thrombus - None: Flow - Phasic: Augmentation -Normal: Reflux - None. 6. Great Saphenous Vein: 6.1. Compressibility - Fully compressible: Thrombus - None: Flow - Phasic: Augmentation - Normal: Reflux - None. OTHER FINDINGS: Right: None significant. Left: None significant. IMPRESSION: Right: No evidence of deep or superficial vein thrombosis of the right lower extremity. Normal valve function noted of the right side. Left: No evidence of deep or superficial vein thrombosis of the left lower extremity. Normal valve function noted of the left side.
== END 2018-03-07 19:59 | disposition home or self-care (01) | DRG 776 ==
LOC: C.ER 11:02 → C.9E 16:26 → C.9I 16:44 → C.5S 03-07 16:25
PROVIDERS: ADMIT Internal Medicine; ATTEND Internal Medicine
PROC: B246ZZ4 Ultrasonography of Right and Left Heart, Transesophageal (ICD-10-PCS; principal; 2018-03-07)
DX: O99.43 Diseases of the circulatory system complicating the puerperium (principal); I50.9 Heart failure, unspecified; I35.1 Nonrheumatic aortic (valve) insufficiency; Z86.32 Personal history of gestational diabetes; Z98.891 History of uterine scar from previous surgery